=== PATIENT | female | born 1975 | race Caucasian/White ===

== ENCOUNTER 2019-01-19 15:08 | Emergency (ER) | payer MEDICARE, OTHER ==
[~2019-01-19] VITALS: Ht 165.1 cm; Wt 135.2 kg
[2019-01-19 16:18] LABS: BASOPHILS ABSOLUTE AUTO 0.07 K/mm3 (0.00-0.23); BASOPHILS PERCENT AUTO 1 % (0-2); EOSINOPHILS ABSOLUTE AUTO 0.43 K/mm3 (0.00-0.68); EOSINOPHILS PERCENT AUTO 3 % (0-6); Hematocrit 44.1 % (33.0-51.0); Hemoglobin 14.4 g/dL (11.5-16.0); IMMATURE GRAN ABSOLUTE AUTO 0.12 K/mm3 (0.00-0.10); IMMATURE GRAN PERCENT AUTO 1 % (0-1); LYMPHOCYTES ABSOLUTE AUTO 2.76 K/mm3 (0.84-5.20); LYMPHOCYTES PERCENT AUTO 18 % (21-46); MONOCYTES ABSOLUTE AUTO 1.15 K/mm3 (0.16-1.47); MONOCYTES PERCENT AUTO 8 % (4-13); Mean Corpuscular HGB 27.4 pg (26.0-34.0); Mean Corpuscular HGB Conc 32.7 g/dL (31.5-36.5); Mean Corpuscular Volume 84 fL (80-100); Mean Platelet Volume 10.4 fL (9.1-12.4); NEUTROPHILS ABSOLUTE AUTO 10.45 K/mm3 (1.96-9.15); NEUTROPHILS PERCENT AUTO 70 % (41-73); Platelet Count 315 K/mm3 (150-400); RDW Coefficient Variation 14.2 % (11.7-14.2); RDW Standard Deviation 43.3 fL (35.1-46.3); Red Blood Cell Count 5.26 M/mm3 (3.80-5.20); White Blood Cell Count 14.98 K/mm3 (4.00-11.30)
[2019-01-19 16:52] LABS: Alanine Aminotransfer (ALT/SGP 25 U/L (12-78); Albumin, Blood 3.5 g/dL (3.4-5.0); Albumin/Globulin Ratio 0.9 (0.8-1.8); Alk Phos 83 U/L (50-136); Anion Gap 4 mmol/L (6-16); Aspartate Aminotrans (AST/SGOT 19 U/L (12-37); Bilirubin, Total 0.8 mg/dL (0.1-1.0); Blood Urea Nitrogen 18 mg/dL (8-24); Bun/Creatinine Ratio 19.7 (12.0-20.0); CO2, Blood 28 mmol/L (21-32); Calcium, Blood 9.3 mg/dL (8.5-10.1); Chloride, Blood 105 mmol/L (98-108); Creatinine, Blood 0.92 mg/dL (0.40-1.00); Globulin, Blood 4.1 g/dL (2.2-4.0); Glomerular Filtration Rate >60 (60-); Glucose, Blood 119 mg/dL (70-99); Potassium, Blood 4.8 mmol/L (3.5-5.5); Sodium, Blood 137 mmol/L (136-145); Total Protein, Blood 7.6 g/dL (6.4-8.2)
[2019-01-19 17:20] LABS: Source, Urine Clean Catch
[2019-01-19 17:30] LABS: Bilirubin, Urine Neg (Neg); Blood, Urine Neg (Neg); Glucose Qualitative, Urine Neg (Neg); Ketones, Urine Neg (Neg); Leukocyte Esterase, Urine Neg (Neg); Nitrite, Urine Neg (Neg); Protein, Urine Neg (Neg); Urobilinogen, Urine NORM (Normal)
[2019-01-19 17:42] LABS: Appearance, Urine Clear (Clear); Color, Urine Yellow (P-Yellow)
[2019-01-19] MEDS ORDERED: Flomax0.4 MG PO (19:26)
[2019-01-19] MEDS ORDERED: Norco 10-325 T1 EACH PO (19:26)
== END 2019-01-19 20:29 | disposition home or self-care (01) ==
LOC: ER 15:08
PROVIDERS: Physician Assistant
DX: N13.1 Hydronephrosis with ureteral stricture, not elsewhere classified (principal); Z79.899 Other long term (current) drug therapy; I11.0 Hypertensive heart disease with heart failure; I50.9 Heart failure, unspecified; F20.9 Schizophrenia, unspecified; E11.9 Type 2 diabetes mellitus without complications; F17.200 Nicotine dependence, unspecified, uncomplicated
CPT/HCPCS: 74176; 80053; 81003; 82947; 83690; 85025; 96361; 96374; 96375; 99284-25; A9270; J1170; J2270; J7030

== ENCOUNTER 2019-03-21 15:09 | Emergency (ER) | payer MEDICARE, OTHER ==
[~2019-03-21] VITALS: Ht 165.1 cm; Wt 120.0 kg
[~2019-03-21 15:09] MED LIST: Flomax0.4 MG PO; Norco 10-325 T1 EACH PO
[2019-03-21 16:20] LABS: Source, Urine Clean Catch
[2019-03-21 16:24] LABS: Bilirubin, Urine Neg (Neg); Blood, Urine 2+ (Neg); Glucose Qualitative, Urine Neg (Neg); Ketones, Urine Neg (Neg); Leukocyte Esterase, Urine 2+ (Neg); Nitrite, Urine Neg (Neg); Protein, Urine 1+ (Neg); Urobilinogen, Urine NORM (Normal)
[2019-03-21 16:39] LABS: Appearance, Urine Hazy (Clear); Color, Urine Yellow (P-Yellow)
[2019-03-21 16:40] LABS: Bacteria Mod /hpf; Squamous Epithelial Cells Many /hpf (Few)
[2019-03-21 16:44] LABS: BASOPHILS ABSOLUTE AUTO 0.06 K/mm3 (0.00-0.23); BASOPHILS PERCENT AUTO 0 % (0-2); EOSINOPHILS ABSOLUTE AUTO 0.34 K/mm3 (0.00-0.68); EOSINOPHILS PERCENT AUTO 2 % (0-6); Hematocrit 43.3 % (33.0-51.0); Hemoglobin 13.9 g/dL (11.5-16.0); IMMATURE GRAN ABSOLUTE AUTO 0.17 K/mm3 (0.00-0.10); IMMATURE GRAN PERCENT AUTO 1 % (0-1); LYMPHOCYTES ABSOLUTE AUTO 3.35 K/mm3 (0.84-5.20); LYMPHOCYTES PERCENT AUTO 23 % (21-46); MONOCYTES ABSOLUTE AUTO 1.25 K/mm3 (0.16-1.47); MONOCYTES PERCENT AUTO 9 % (4-13); Mean Corpuscular HGB 27.5 pg (26.0-34.0); Mean Corpuscular HGB Conc 32.1 g/dL (31.5-36.5); Mean Corpuscular Volume 86 fL (80-100); Mean Platelet Volume 10.6 fL (9.1-12.4); NEUTROPHILS ABSOLUTE AUTO 9.48 K/mm3 (1.96-9.15); NEUTROPHILS PERCENT AUTO 65 % (41-73); Platelet Count 294 K/mm3 (150-400); RDW Coefficient Variation 14.2 % (11.7-14.2); RDW Standard Deviation 45.1 fL (35.1-46.3); Red Blood Cell Count 5.05 M/mm3 (3.80-5.20); White Blood Cell Count 14.65 K/mm3 (4.00-11.30)
[2019-03-21 17:07] LABS: Albumin, Blood 3.4 g/dL (3.4-5.0); Bilirubin, Total 0.2 mg/dL (0.1-1.0); Bun/Creatinine Ratio 15.8 (12.0-20.0); Calcium, Blood 8.8 mg/dL (8.5-10.1); Creatinine, Blood 1.39 mg/dL (0.40-1.00); Globulin, Blood 3.5 g/dL (2.2-4.0); Potassium, Blood 4.4 mmol/L (3.5-5.5); Total Protein, Blood 6.9 g/dL (6.4-8.2)
[2019-03-21] MEDS ORDERED: METOPROLOL SUCC25 MG PO (18:21)
[2019-03-21] MEDS ORDERED: LISI5 PO (18:22)
[2019-03-21] MEDS ORDERED: GABA300 PO (18:23)
[2019-03-21] MEDS ORDERED: ATOR10 PO (18:23)
[2019-03-21] MEDS ORDERED: Cymbalta20 MG PO (18:23)
[2019-03-21] MEDS ORDERED: METF500 PO (18:25)
[2019-03-21] MEDS ORDERED: ZIPR80 PO (18:26)
[2019-03-21] MEDS ORDERED: INSULANPEN SC (18:26)
[2019-03-21] MEDS ORDERED: CEFD300 PO (20:18)
== END 2019-03-21 21:09 | disposition home or self-care (01) ==
LOC: ER 15:09
PROVIDERS: Physician Assistant
DX: T83.84XA Pain due to genitourinary prosthetic devices, implants and grafts, initial encounter (principal); I13.0 Hypertensive heart and chronic kidney disease with heart failure and stage 1 through stage 4 chronic kidney disease, or unspecified chronic kidney disease; I50.9 Heart failure, unspecified; E11.22 Type 2 diabetes mellitus with diabetic chronic kidney disease; N18.9 Chronic kidney disease, unspecified; I11.0 Hypertensive heart disease with heart failure; F20.9 Schizophrenia, unspecified; Z91.040 Latex allergy status; Z91.09 Other allergy status, other than to drugs and biological substances
CPT/HCPCS: 74176; 80053; 81001; 82947; 85025; 87086; 96361; 96374; 99284-25; A9270; J1170; J7030

== ENCOUNTER 2019-03-29 10:47 | Emergency (ER) | payer MEDICARE, OTHER ==
[~2019-03-29] VITALS: Ht 172.7 cm; Wt 136.1 kg
[~2019-03-29 10:47] MED LIST changes: +ATOR10 PO; +CEFD300 PO; +Cymbalta20 MG PO; +GABA300 PO; +INSULANPEN SC; +LISI5 PO; +METF500 PO; +METOPROLOL SUCC25 MG PO; +ZIPR80 PO
[2019-03-29 12:02] LABS: BASOPHILS ABSOLUTE AUTO 0.05 K/mm3 (0.00-0.23); BASOPHILS PERCENT AUTO 0 % (0-2); EOSINOPHILS PERCENT AUTO 1 % (0-6); Hematocrit 44.9 % (33.0-51.0); Hemoglobin 14.6 g/dL (11.5-16.0); IMMATURE GRAN ABSOLUTE AUTO 0.11 K/mm3 (0.00-0.10); IMMATURE GRAN PERCENT AUTO 1 % (0-1); LYMPHOCYTES ABSOLUTE AUTO 2.91 K/mm3 (0.84-5.20); LYMPHOCYTES PERCENT AUTO 21 % (21-46); MONOCYTES ABSOLUTE AUTO 1.06 K/mm3 (0.16-1.47); MONOCYTES PERCENT AUTO 8 % (4-13); Mean Corpuscular HGB 27.6 pg (26.0-34.0); Mean Corpuscular HGB Conc 32.5 g/dL (31.5-36.5); Mean Corpuscular Volume 85 fL (80-100); Mean Platelet Volume 10.7 fL (9.1-12.4); NEUTROPHILS ABSOLUTE AUTO 9.74 K/mm3 (1.96-9.15); NEUTROPHILS PERCENT AUTO 69 % (41-73); Platelet Count 309 K/mm3 (150-400); RDW Coefficient Variation 14.3 % (11.7-14.2); RDW Standard Deviation 43.5 fL (35.1-46.3); Red Blood Cell Count 5.29 M/mm3 (3.80-5.20); White Blood Cell Count 14.07 K/mm3 (4.00-11.30)
[2019-03-29 12:18] LABS: Alanine Aminotransfer (ALT/SGP 27 U/L (12-78); Albumin, Blood 3.9 g/dL (3.4-5.0); Alk Phos 78 U/L (50-136); Anion Gap 6 mmol/L (6-16); Aspartate Aminotrans (AST/SGOT 12 U/L (12-37); Bilirubin, Total 0.2 mg/dL (0.1-1.0); Blood Urea Nitrogen 14 mg/dL (8-24); CO2, Blood 22 mmol/L (21-32); Calcium, Blood 9.1 mg/dL (8.5-10.1); Chloride, Blood 108 mmol/L (98-108); Creatinine, Blood 0.88 mg/dL (0.40-1.00); Globulin, Blood 3.9 g/dL (2.2-4.0); Glomerular Filtration Rate >60 (60-); Glucose, Blood 134 mg/dL (70-99); Potassium, Blood 4.2 mmol/L (3.5-5.5); Sodium, Blood 136 mmol/L (136-145); Total Protein, Blood 7.8 g/dL (6.4-8.2)
[2019-03-29] MEDS ORDERED: INSULANPEN (12:40)
[2019-03-29 13:14] LABS: Source, Urine Voided
[2019-03-29 13:18] LABS: Bilirubin, Urine Neg (Neg); Blood, Urine Neg (Neg); Glucose Qualitative, Urine Neg (Neg); Ketones, Urine Neg (Neg); Leukocyte Esterase, Urine Neg (Neg); Nitrite, Urine Neg (Neg); Protein, Urine Neg (Neg); Urobilinogen, Urine NORM (Normal)
[2019-03-29 13:23] LABS: Appearance, Urine Clear (Clear); Color, Urine Yellow (P-Yellow)
[2019-03-29] MEDS ORDERED: ACETAMINOPHEN500 MG PO (15:23)
[2019-03-29] MEDS ORDERED: Vistaril50 MG PO (15:23)
[2019-03-29] MEDS ORDERED: Percocet 5-3251 EACH PO (15:23)
== END 2019-03-29 15:50 | disposition home or self-care (01) ==
LOC: ER 10:47
PROVIDERS: Emergency Medicine
DX: R10.9 Unspecified abdominal pain (principal); F20.9 Schizophrenia, unspecified; I13.0 Hypertensive heart and chronic kidney disease with heart failure and stage 1 through stage 4 chronic kidney disease, or unspecified chronic kidney disease; E11.22 Type 2 diabetes mellitus with diabetic chronic kidney disease; N18.9 Chronic kidney disease, unspecified; I50.9 Heart failure, unspecified; Z96.0 Presence of urogenital implants; Z87.440 Personal history of urinary (tract) infections; Z87.891 Personal history of nicotine dependence; Z91.040 Latex allergy status; Z91.048 Other nonmedicinal substance allergy status; Z79.899 Other long term (current) drug therapy; Z79.4 Long term (current) use of insulin
CPT/HCPCS: 36415; 76705; 80053; 81003; 85025; 96374; 96375; 96376; 99284-25; J1170; J2060; J2405

== ENCOUNTER 2019-03-31 00:04 | Emergency (ER) | payer MEDICARE, OTHER ==
[~2019-03-31] VITALS: Ht 165.1 cm; Wt 122.5 kg
[~2019-03-31 00:04] MED LIST changes: +ACETAMINOPHEN500 MG PO; +INSULANPEN; +Percocet 5-3251 EACH PO; +Vistaril50 MG PO
[2019-03-31 00:40] LABS: BASOPHILS ABSOLUTE AUTO 0.05 K/mm3 (0.00-0.23); BASOPHILS PERCENT AUTO 0 % (0-2); EOSINOPHILS PERCENT AUTO 2 % (0-6); Hematocrit 47.3 % (33.0-51.0); Hemoglobin 15.3 g/dL (11.5-16.0); IMMATURE GRAN ABSOLUTE AUTO 0.11 K/mm3 (0.00-0.10); IMMATURE GRAN PERCENT AUTO 1 % (0-1); LYMPHOCYTES ABSOLUTE AUTO 3.47 K/mm3 (0.84-5.20); LYMPHOCYTES PERCENT AUTO 20 % (21-46); MONOCYTES ABSOLUTE AUTO 1.51 K/mm3 (0.16-1.47); MONOCYTES PERCENT AUTO 9 % (4-13); Mean Corpuscular HGB 27.6 pg (26.0-34.0); Mean Corpuscular HGB Conc 32.3 g/dL (31.5-36.5); Mean Corpuscular Volume 85 fL (80-100); Mean Platelet Volume 10.4 fL (9.1-12.4); NEUTROPHILS ABSOLUTE AUTO 11.87 K/mm3 (1.96-9.15); NEUTROPHILS PERCENT AUTO 69 % (41-73); Platelet Count 322 K/mm3 (150-400); RDW Coefficient Variation 13.9 % (11.7-14.2); RDW Standard Deviation 43.5 fL (35.1-46.3); Red Blood Cell Count 5.55 M/mm3 (3.80-5.20); White Blood Cell Count 17.31 K/mm3 (4.00-11.30)
[2019-03-31 01:01] LABS: Alanine Aminotransfer (ALT/SGP 28 U/L (12-78); Albumin/Globulin Ratio 0.9 (0.8-1.8); Alk Phos 85 U/L (50-136); Anion Gap 7 mmol/L (6-16); Aspartate Aminotrans (AST/SGOT 18 U/L (12-37); Bilirubin, Total 0.4 mg/dL (0.1-1.0); Blood Urea Nitrogen 13 mg/dL (8-24); CO2, Blood 27 mmol/L (21-32); Chloride, Blood 104 mmol/L (98-108); Globulin, Blood 4.3 g/dL (2.2-4.0); Glomerular Filtration Rate >60 (60-); Glucose, Blood 139 mg/dL (70-99); Potassium, Blood 3.6 mmol/L (3.5-5.5); Sodium, Blood 138 mmol/L (136-145); Total Protein, Blood 8.3 g/dL (6.4-8.2)
[2019-03-31 01:41] LABS: Source, Urine Clean Catch
[2019-03-31 01:43] LABS: Bilirubin, Urine Neg (Neg); Blood, Urine Neg (Neg); Glucose Qualitative, Urine Neg (Neg); Ketones, Urine 1+ (Neg); Leukocyte Esterase, Urine Neg (Neg); Nitrite, Urine Neg (Neg); Protein, Urine 1+ (Neg); Urobilinogen, Urine NORM (Normal)
[2019-03-31 01:45] LABS: Appearance, Urine Clear (Clear); Color, Urine Yellow (P-Yellow)
[2019-03-31] MEDS ORDERED: HALO5 PO (03:06)
[2019-03-31] MEDS ORDERED: Dicyclomine HCl20 MG PO (03:22)
== END 2019-03-31 03:42 | disposition home or self-care (01) ==
LOC: ER 00:04
PROVIDERS: Emergency Medicine
DX: R10.84 Generalized abdominal pain (principal); Z91.040 Latex allergy status; Z91.048 Other nonmedicinal substance allergy status; Z79.899 Other long term (current) drug therapy; Z79.4 Long term (current) use of insulin; F20.9 Schizophrenia, unspecified; I13.0 Hypertensive heart and chronic kidney disease with heart failure and stage 1 through stage 4 chronic kidney disease, or unspecified chronic kidney disease; I50.9 Heart failure, unspecified; E11.22 Type 2 diabetes mellitus with diabetic chronic kidney disease; N18.9 Chronic kidney disease, unspecified; Z87.891 Personal history of nicotine dependence
CPT/HCPCS: 36415; 74177; 80053; 81025; 83690; 85025; 96361; 96372-59; 96374-59; 99284-25; J0500; J1630; J1885; J7030; Q9967

== ENCOUNTER 2019-06-15 10:52 | Emergency (ER) | payer MEDICARE, OTHER ==
[~2019-06-15] VITALS: Ht 165.1 cm; Wt 131.5 kg
[~2019-06-15 10:52] MED LIST changes: +Dicyclomine HCl20 MG PO; +HALO5 PO
[2019-06-15] MEDS ORDERED: HYDR1TAB94 PO (13:04)
[2019-06-15] MEDS ORDERED: NAPR550 PO (13:04)
== END 2019-06-15 13:10 | disposition home or self-care (01) ==
LOC: ER 10:52
DX: M79.661 Pain in right lower leg (principal); M79.662 Pain in left lower leg; I13.0 Hypertensive heart and chronic kidney disease with heart failure and stage 1 through stage 4 chronic kidney disease, or unspecified chronic kidney disease; E11.22 Type 2 diabetes mellitus with diabetic chronic kidney disease; N18.9 Chronic kidney disease, unspecified; I50.9 Heart failure, unspecified; F20.9 Schizophrenia, unspecified; Z91.040 Latex allergy status; Z91.048 Other nonmedicinal substance allergy status; Z79.899 Other long term (current) drug therapy; Z79.4 Long term (current) use of insulin; Z87.891 Personal history of nicotine dependence
CPT/HCPCS: 93970; 96372; 99283-25; J1885

== ENCOUNTER 2019-06-17 09:34 | Emergency (ER) | payer MEDICARE, OTHER ==
[~2019-06-17] VITALS: Ht 165.1 cm; Wt 131.5 kg
[~2019-06-17 09:34] MED LIST changes: +HYDR1TAB94 PO; +NAPR550 PO
[2019-06-17] MEDS ORDERED: ATORVASTATIN CA20 MG PO (10:03)
[2019-06-17 11:05] LABS: Calcium, Ionized (POC) 1.14 mmol/L (1.10-1.46); Chloride (POC) 107 mmol/L (98-108); Creatinine (POC) 0.9 mg/dL (0.6-1.0); Glucose (ISTAT POC) 71 mg/dL (70-99); Hemoglobin (POC) 15.3 g/dL (12.0-16.0); Potassium (POC) 4.3 mmol/L (3.5-5.5); Sodium (POC) 141 mmol/L (135-148); Total CO2 (POC) 25 mmol/L (21-32)
[2019-06-17] MEDS ORDERED: COMPRESSION TH1 EACH MC (11:15)
== END 2019-06-17 11:33 | disposition home or self-care (01) ==
LOC: ER 09:34
PROVIDERS: Emergency Medicine
DX: I83.93 Asymptomatic varicose veins of bilateral lower extremities (principal); F20.9 Schizophrenia, unspecified; G89.4 Chronic pain syndrome; I13.0 Hypertensive heart and chronic kidney disease with heart failure and stage 1 through stage 4 chronic kidney disease, or unspecified chronic kidney disease; E11.22 Type 2 diabetes mellitus with diabetic chronic kidney disease; I50.9 Heart failure, unspecified; N18.9 Chronic kidney disease, unspecified; F17.210 Nicotine dependence, cigarettes, uncomplicated; Z91.040 Latex allergy status; Z91.048 Other nonmedicinal substance allergy status; Z79.899 Other long term (current) drug therapy; Z79.4 Long term (current) use of insulin
CPT/HCPCS: 36415; 80047; 85014; 99283

== ENCOUNTER 2019-10-03 09:57 | Observation (INO) | payer MEDICARE, OTHER ==
[~2019-10-03] VITALS: Ht 165.1 cm; Wt 123.5 kg
[~2019-10-03 09:57] MED LIST changes: +ATORVASTATIN CA20 MG PO; +COMPRESSION TH1 EACH MC; -HALO5 PO; +Haloperidol10 MG PO; -METF500 PO; +METO50 PO; -METOPROLOL SUCC25 MG PO; +Metformin HCl1000 MG PO
[2019-10-03 12:41] LABS: BASOPHILS PERCENT AUTO 1 % (0-2); EOSINOPHILS ABSOLUTE AUTO 0.12 K/mm3 (0.00-0.68); EOSINOPHILS PERCENT AUTO 1 % (0-6); Hematocrit 53.2 % (33.0-51.0); IMMATURE GRAN ABSOLUTE AUTO 0.09 K/mm3 (0.00-0.10); IMMATURE GRAN PERCENT AUTO 1 % (0-1); LYMPHOCYTES ABSOLUTE AUTO 3.03 K/mm3 (0.84-5.20); LYMPHOCYTES PERCENT AUTO 17 % (21-46); MONOCYTES ABSOLUTE AUTO 1.39 K/mm3 (0.16-1.47); MONOCYTES PERCENT AUTO 8 % (4-13); Mean Corpuscular HGB 25.1 pg (26.0-34.0); Mean Corpuscular Volume 79 fL (80-100); Mean Platelet Volume 10.6 fL (9.1-12.4); NEUTROPHILS PERCENT AUTO 73 % (41-73); Platelet Count 322 K/mm3 (150-400); RDW Coefficient Variation 16.6 % (11.7-14.2); RDW Standard Deviation 42.1 fL (35.1-46.3); Red Blood Cell Count 6.77 M/mm3 (3.80-5.20); White Blood Cell Count 17.43 K/mm3 (4.00-11.30)
[2019-10-03] MEDS ORDERED: DULOXETINE HCL40 M1 PO (12:58)
[2019-10-03 12:59] LABS: Alanine Aminotransfer (ALT/SGP 21 U/L (12-78); Albumin, Blood 3.8 g/dL (3.4-5.0); Alk Phos 110 U/L (50-136); Anion Gap 9 mmol/L (6-16); Aspartate Aminotrans (AST/SGOT 9 U/L (12-37); Bilirubin, Total 0.4 mg/dL (0.1-1.0); Blood Urea Nitrogen 8 mg/dL (8-24); Bun/Creatinine Ratio 9.7 (12.0-20.0); CO2, Blood 25 mmol/L (21-32); Calcium, Blood 10.1 mg/dL (8.5-10.1); Chloride, Blood 98 mmol/L (98-108); Creatinine, Blood 0.83 mg/dL (0.40-1.00); Glomerular Filtration Rate >60 (60-); Glucose, Blood 284 mg/dL (70-99); Potassium, Blood 4.3 mmol/L (3.5-5.5); Sodium, Blood 132 mmol/L (136-145); Total Protein, Blood 7.8 g/dL (6.4-8.2)
[2019-10-03 13:07] LABS: Thyroid Stimulating Hormone 0.853 uIU/mL (0.360-4.800)
[2019-10-03 13:08] LABS: U Amphetamine Screen Not Detected; U Barbituate Screen Not Detected; U Benzodiazapine Screen Not Detected; U Buprenorphine Screen Not Detected; U Cannabinoids Screen Not Detected; U Cocaine Screen Not Detected; U Methadone Screen Not Detected; U Methamphetamine Screen Not Detected; U Opiates Screen DETECTED; U Oxycodone Screen Not Detected; U Phencyclidine Screen Not Detected; U Propoxyphene Screen Not Detected
[2019-10-03 21:08] LABS: Source, Urine Clean Catch
[2019-10-03 21:11] LABS: Bilirubin, Urine Neg (Neg); Blood, Urine 1+ (Neg); Glucose Qualitative, Urine 3+ (Neg); Ketones, Urine 1+ (Neg); Leukocyte Esterase, Urine 2+ (Neg); Nitrite, Urine Neg (Neg); Protein, Urine 2+ (Neg); Urobilinogen, Urine NORM (Normal); pH, Urine 6.5 (5.0-8.0)
[2019-10-03 21:23] LABS: Appearance, Urine Hazy (Clear); Bacteria Many /hpf; Color, Urine Yellow (P-Yellow); Red Blood Cells, Urine 0-2 /hpf (0-2); Squamous Epithelial Cells Many /hpf (Few)
[2019-10-04 08:07] LABS: BASOPHILS ABSOLUTE AUTO 0.08 K/mm3 (0.00-0.23); BASOPHILS PERCENT AUTO 1 % (0-2); EOSINOPHILS ABSOLUTE AUTO 0.18 K/mm3 (0.00-0.68); EOSINOPHILS PERCENT AUTO 1 % (0-6); Hematocrit 53.3 % (33.0-51.0); IMMATURE GRAN ABSOLUTE AUTO 0.14 K/mm3 (0.00-0.10); IMMATURE GRAN PERCENT AUTO 1 % (0-1); LYMPHOCYTES ABSOLUTE AUTO 3.46 K/mm3 (0.84-5.20); LYMPHOCYTES PERCENT AUTO 21 % (21-46); MONOCYTES ABSOLUTE AUTO 1.69 K/mm3 (0.16-1.47); MONOCYTES PERCENT AUTO 10 % (4-13); Mean Corpuscular HGB 25.4 pg (26.0-34.0); Mean Corpuscular HGB Conc 31.9 g/dL (31.5-36.5); Mean Corpuscular Volume 80 fL (80-100); Mean Platelet Volume 10.6 fL (9.1-12.4); NEUTROPHILS ABSOLUTE AUTO 11.14 K/mm3 (1.96-9.15); NEUTROPHILS PERCENT AUTO 67 % (41-73); Platelet Count 345 K/mm3 (150-400); RDW Coefficient Variation 17.2 % (11.7-14.2); RDW Standard Deviation 43.9 fL (35.1-46.3); Red Blood Cell Count 6.68 M/mm3 (3.80-5.20); White Blood Cell Count 16.69 K/mm3 (4.00-11.30)
[2019-10-04 08:38] LABS: Source, Urine Clean Catch
[2019-10-04 08:41] LABS: Bilirubin, Urine Neg (Neg); Blood, Urine Neg (Neg); Glucose Qualitative, Urine Neg (Neg); Ketones, Urine Neg (Neg); Leukocyte Esterase, Urine 1+ (Neg); Nitrite, Urine Neg (Neg); Protein, Urine 2+ (Neg); Specific Gravity, Urine 1.015 (1.003-1.022); Urobilinogen, Urine NORM (Normal)
[2019-10-04 08:53] LABS: Appearance, Urine Hazy (Clear); Color, Urine Yellow (P-Yellow)
[2019-10-04 08:54] LABS: Red Blood Cells, Urine 0-2 /hpf (0-2); Squamous Epithelial Cells Many /hpf (Few)
[2019-10-04 08:55] LABS: Bacteria Many /hpf
[2019-10-04 10:37] LABS: Albumin, Blood 3.6 g/dL (3.4-5.0); Albumin/Globulin Ratio 0.9 (0.8-1.8); Bilirubin, Total 0.3 mg/dL (0.1-1.0); Bun/Creatinine Ratio 15.3 (12.0-20.0); Calcium, Blood 9.8 mg/dL (8.5-10.1); Creatinine, Blood 1.11 mg/dL (0.40-1.00); Globulin, Blood 3.8 g/dL (2.2-4.0); Potassium, Blood 4.4 mmol/L (3.5-5.5); Total Protein, Blood 7.4 g/dL (6.4-8.2)
== END 2019-10-04 13:19 | disposition home or self-care (01) ==
LOC: ER 09:57 → EOR 09:58
PROVIDERS: Emergency Medicine; ADMIT Emergency Medicine
DX: F32.9 Major depressive disorder, single episode, unspecified (principal); I11.0 Hypertensive heart disease with heart failure; I50.9 Heart failure, unspecified; E11.9 Type 2 diabetes mellitus without complications; F20.9 Schizophrenia, unspecified; F17.210 Nicotine dependence, cigarettes, uncomplicated; Z88.8 Allergy status to other drugs, medicaments and biological substances; Z91.040 Latex allergy status; Z79.4 Long term (current) use of insulin; Z79.899 Other long term (current) drug therapy
CPT/HCPCS: 36415; 71046; 80053; 81001; 82947; 83880; 84443; 84484; 85025; 87086; 99285-25; A9270; G0378; Q0177

== ENCOUNTER 2020-01-20 16:45 | Emergency (ER) | payer MEDICARE, OTHER ==
[~2020-01-20] VITALS: Ht 165.1 cm; Wt 127.0 kg
[~2020-01-20 16:45] MED LIST changes: +DULOXETINE HCL40 M1 PO
[2020-01-20 17:08] LABS: BASOPHILS ABSOLUTE AUTO 0.04 K/mm3 (0.00-0.23); BASOPHILS PERCENT AUTO 0 % (0-2); EOSINOPHILS ABSOLUTE AUTO 0.45 K/mm3 (0.00-0.68); EOSINOPHILS PERCENT AUTO 3 % (0-6); Hematocrit 44.5 % (33.0-51.0); Hemoglobin 14.5 g/dL (11.5-16.0); IMMATURE GRAN ABSOLUTE AUTO 0.11 K/mm3 (0.00-0.10); IMMATURE GRAN PERCENT AUTO 1 % (0-1); LYMPHOCYTES PERCENT AUTO 19 % (21-46); MONOCYTES ABSOLUTE AUTO 1.45 K/mm3 (0.16-1.47); MONOCYTES PERCENT AUTO 10 % (4-13); Mean Corpuscular HGB Conc 32.6 g/dL (31.5-36.5); Mean Corpuscular Volume 83 fL (80-100); Mean Platelet Volume 10.2 fL (9.1-12.4); NEUTROPHILS ABSOLUTE AUTO 10.06 K/mm3 (1.96-9.15); NEUTROPHILS PERCENT AUTO 68 % (41-73); Platelet Count 256 K/mm3 (150-400); RDW Coefficient Variation 16.2 % (11.7-14.2); RDW Standard Deviation 48.8 fL (35.1-46.3); Red Blood Cell Count 5.37 M/mm3 (3.80-5.20); White Blood Cell Count 14.91 K/mm3 (4.00-11.30)
[2020-01-20 17:30] LABS: Alanine Aminotransfer (ALT/SGP 15 U/L (12-78); Albumin, Blood 3.6 g/dL (3.4-5.0); Alk Phos 89 U/L (50-136); Anion Gap 9 mmol/L (6-16); Aspartate Aminotrans (AST/SGOT 6 U/L (12-37); Bilirubin, Total 0.4 mg/dL (0.1-1.0); Blood Urea Nitrogen 13 mg/dL (8-24); CO2, Blood 24 mmol/L (21-32); Calcium, Blood 8.9 mg/dL (8.5-10.1); Chloride, Blood 102 mmol/L (98-108); Creatinine, Blood 0.86 mg/dL (0.40-1.00); Globulin, Blood 3.7 g/dL (2.2-4.0); Glomerular Filtration Rate >60 (60-); Glucose, Blood 132 mg/dL (70-99); Potassium, Blood 4.1 mmol/L (3.5-5.5); Sodium, Blood 135 mmol/L (136-145); Total Protein, Blood 7.3 g/dL (6.4-8.2); Troponin I <0.015 ng/mL (0.000-0.040)
== END 2020-01-20 18:48 | disposition left against medical advice (07) ==
LOC: ER 16:45
PROVIDERS: Physician Assistant
DX: Z53.21 Procedure and treatment not carried out due to patient leaving prior to being seen by health care provider (principal)
CPT/HCPCS: 71046; 80053; 83880; 84484; 85025; 93005; 93010; 99285-25

== ENCOUNTER 2020-03-15 17:56 | Emergency (ER) | payer MEDICARE, OTHER ==
[~2020-03-15] VITALS: Ht 165.1 cm; Wt 122.5 kg
[2020-03-15 18:35] LABS: BASOPHILS ABSOLUTE AUTO 0.04 K/mm3 (0.00-0.23); BASOPHILS PERCENT AUTO 0 % (0-2); EOSINOPHILS PERCENT AUTO 2 % (0-6); Hematocrit 46.7 % (33.0-51.0); Hemoglobin 15.2 g/dL (11.5-16.0); IMMATURE GRAN ABSOLUTE AUTO 0.09 K/mm3 (0.00-0.10); IMMATURE GRAN PERCENT AUTO 1 % (0-1); LYMPHOCYTES ABSOLUTE AUTO 3.18 K/mm3 (0.84-5.20); LYMPHOCYTES PERCENT AUTO 22 % (21-46); MONOCYTES PERCENT AUTO 9 % (4-13); Mean Corpuscular HGB 27.8 pg (26.0-34.0); Mean Corpuscular HGB Conc 32.5 g/dL (31.5-36.5); Mean Corpuscular Volume 86 fL (80-100); Mean Platelet Volume 9.8 fL (9.1-12.4); NEUTROPHILS ABSOLUTE AUTO 9.36 K/mm3 (1.96-9.15); NEUTROPHILS PERCENT AUTO 66 % (41-73); Platelet Count 286 K/mm3 (150-400); RDW Coefficient Variation 13.9 % (11.7-14.2); RDW Standard Deviation 43.5 fL (35.1-46.3); Red Blood Cell Count 5.46 M/mm3 (3.80-5.20); White Blood Cell Count 14.17 K/mm3 (4.00-11.30)
[2020-03-15 18:37] LABS: Source, Urine Clean Catch
[2020-03-15 18:41] LABS: Bilirubin, Urine Neg (Neg); Blood, Urine Neg (Neg); Glucose Qualitative, Urine Neg (Neg); Ketones, Urine Neg (Neg); Leukocyte Esterase, Urine Neg (Neg); Nitrite, Urine Neg (Neg); Protein, Urine Neg (Neg); Specific Gravity, Urine 1.005 (1.003-1.022); Urobilinogen, Urine NORM (Normal)
[2020-03-15 18:42] LABS: Appearance, Urine Clear (Clear); Color, Urine Yellow (P-Yellow)
[2020-03-15 18:56] LABS: Alanine Aminotransfer (ALT/SGP 17 U/L (12-78); Albumin, Blood 3.6 g/dL (3.4-5.0); Albumin/Globulin Ratio 0.9 (0.8-1.8); Alk Phos 81 U/L (50-136); Anion Gap 5 mmol/L (6-16); Aspartate Aminotrans (AST/SGOT 9 U/L (12-37); Bilirubin, Total 0.2 mg/dL (0.1-1.0); Blood Urea Nitrogen 14 mg/dL (8-24); Bun/Creatinine Ratio 15.9 (12.0-20.0); CO2, Blood 26 mmol/L (21-32); Chloride, Blood 108 mmol/L (98-108); Creatinine, Blood 0.88 mg/dL (0.40-1.00); Globulin, Blood 3.9 g/dL (2.2-4.0); Glomerular Filtration Rate >60 (60-); Glucose, Blood 121 mg/dL (70-99); Potassium, Blood 4.5 mmol/L (3.5-5.5); Sodium, Blood 139 mmol/L (136-145); Total Protein, Blood 7.5 g/dL (6.4-8.2)
[2020-03-15] MEDS ORDERED: Prinivil10 MG PO (19:18)
[2020-03-15] MEDS ORDERED: HALO5 PO (19:18)
[2020-03-15] MEDS ORDERED: ZIPR80 PO (19:19)
[2020-03-15] MEDS ORDERED: PANTOPRAZOLE SO40 M2 PO (19:20)
[2020-03-15] MEDS ORDERED: CODACE30 PO (19:20)
[2020-03-15] MEDS ORDERED: TAMSULOSIN HCL0.4 M1 PO (19:20)
[2020-03-15] MEDS ORDERED: BENZ2 PO (19:21)
[2020-03-15] MEDS ORDERED: Ventolin/Prove6.7 GM (19:21)
[2020-03-15] MEDS ORDERED: CYCL10 PO (20:08)
[2020-03-15] MEDS ORDERED: NAPR550 PO (20:08)
== END 2020-03-15 20:44 | disposition home or self-care (01) ==
LOC: ER 17:56
PROVIDERS: Physician Assistant
DX: M62.830 Muscle spasm of back (principal); I11.0 Hypertensive heart disease with heart failure; I50.9 Heart failure, unspecified; E11.9 Type 2 diabetes mellitus without complications; F17.210 Nicotine dependence, cigarettes, uncomplicated
CPT/HCPCS: 36415; 74176; 80053; 81003; 83690; 85025; 99284-25

== ENCOUNTER 2020-03-26 16:44 | Emergency (ER) | payer MEDICARE, OTHER ==
[~2020-03-26] VITALS: Ht 165.1 cm; Wt 126.5 kg
[~2020-03-26 16:44] MED LIST changes: +BENZ2 PO; +CODACE30 PO; +CYCL10 PO; +HALO5 PO; +PANTOPRAZOLE SO40 M2 PO; +Prinivil10 MG PO; +TAMSULOSIN HCL0.4 M1 PO; +Ventolin/Prove6.7 GM
== END 2020-03-26 18:51 | disposition left against medical advice (07) ==
LOC: ER 16:44
DX: N93.9 Abnormal uterine and vaginal bleeding, unspecified (principal); Z53.20 Procedure and treatment not carried out because of patient's decision for unspecified reasons; W19.XXXA Unspecified fall, initial encounter
CPT/HCPCS: 72170; 99283-25

== ENCOUNTER → 2020-03-31 | Outpatient (CLI) | payer MEDICARE, OTHER ==
[2020-03-31 17:48] LABS: BASOPHILS ABSOLUTE AUTO 0.04 K/mm3 (0.00-0.23); BASOPHILS PERCENT AUTO 0 % (0-2); EOSINOPHILS ABSOLUTE AUTO 0.23 K/mm3 (0.00-0.68); EOSINOPHILS PERCENT AUTO 2 % (0-6); Hematocrit 41.5 % (33.0-51.0); Hemoglobin 13.6 g/dL (11.5-16.0); IMMATURE GRAN ABSOLUTE AUTO 0.07 K/mm3 (0.00-0.10); IMMATURE GRAN PERCENT AUTO 1 % (0-1); LYMPHOCYTES PERCENT AUTO 25 % (21-46); MONOCYTES ABSOLUTE AUTO 0.86 K/mm3 (0.16-1.47); MONOCYTES PERCENT AUTO 8 % (4-13); Mean Corpuscular HGB 28.2 pg (26.0-34.0); Mean Corpuscular HGB Conc 32.8 g/dL (31.5-36.5); Mean Corpuscular Volume 86 fL (80-100); Mean Platelet Volume 9.9 fL (9.1-12.4); NEUTROPHILS ABSOLUTE AUTO 6.52 K/mm3 (1.96-9.15); NEUTROPHILS PERCENT AUTO 64 % (41-73); Platelet Count 240 K/mm3 (150-400); RDW Coefficient Variation 13.5 % (11.7-14.2); RDW Standard Deviation 42.4 fL (35.1-46.3); Red Blood Cell Count 4.82 M/mm3 (3.80-5.20); White Blood Cell Count 10.22 K/mm3 (4.00-11.30)
== END | disposition home or self-care (01) ==
LOC: LAB EV 17:45 → LAB SHORT 17:45
PROVIDERS: Physician Assistant
DX: R10.32 Left lower quadrant pain (principal)
CPT/HCPCS: 85025

== ENCOUNTER 2020-05-28 10:09 | Inpatient (IN) | payer MEDICARE, OTHER ==
[~2020-05-28] VITALS: Ht 165.1 cm; Wt 142.9 kg
[~2020-05-28 10:09] MED LIST changes: +BASAGLAR K100 UNIT/1 SC; -CODACE30 PO; +GLUCOPHAGE1000 M1 PO; -INSULANPEN; +LISI20 PO; +METO25 PO; -METO50 PO; -Metformin HCl1000 MG PO; -Prinivil10 MG PO; -Ventolin/Prove6.7 GM; +Ventolin/Prove6.7 GM INH
[2020-05-28 11:06] LABS: BASOPHILS ABSOLUTE AUTO 0.06 K/mm3 (0.00-0.23); BASOPHILS PERCENT AUTO 0 % (0-2); EOSINOPHILS ABSOLUTE AUTO 0.52 K/mm3 (0.00-0.68); EOSINOPHILS PERCENT AUTO 4 % (0-6); Hematocrit 42.9 % (33.0-51.0); Hemoglobin 13.7 g/dL (11.5-16.0); IMMATURE GRAN ABSOLUTE AUTO 0.21 K/mm3 (0.00-0.10); IMMATURE GRAN PERCENT AUTO 2 % (0-1); LYMPHOCYTES ABSOLUTE AUTO 2.89 K/mm3 (0.84-5.20); LYMPHOCYTES PERCENT AUTO 21 % (21-46); MONOCYTES ABSOLUTE AUTO 1.11 K/mm3 (0.16-1.47); MONOCYTES PERCENT AUTO 8 % (4-13); Mean Corpuscular HGB 28.1 pg (26.0-34.0); Mean Corpuscular HGB Conc 31.9 g/dL (31.5-36.5); Mean Corpuscular Volume 88 fL (80-100); Mean Platelet Volume 9.9 fL (9.1-12.4); NEUTROPHILS ABSOLUTE AUTO 8.76 K/mm3 (1.96-9.15); NEUTROPHILS PERCENT AUTO 65 % (41-73); Platelet Count 317 K/mm3 (150-400); RDW Coefficient Variation 12.8 % (11.7-14.2); RDW Standard Deviation 40.8 fL (35.1-46.3); Red Blood Cell Count 4.88 M/mm3 (3.80-5.20); White Blood Cell Count 13.55 K/mm3 (4.00-11.30)
[2020-05-28 11:28] LABS: Albumin, Blood 3.2 g/dL (3.4-5.0); Albumin/Globulin Ratio 0.8 (0.8-1.8); Bilirubin, Total 0.4 mg/dL (0.1-1.0); Bun/Creatinine Ratio 16.4 (12.0-20.0); Calcium, Blood 8.7 mg/dL (8.5-10.1); Creatinine, Blood 1.16 mg/dL (0.40-1.00); Potassium, Blood 4.2 mmol/L (3.5-5.5); Total Protein, Blood 7.2 g/dL (6.4-8.2)
[2020-05-28 12:06] LABS: Source, Urine Voided
[2020-05-28 12:16] LABS: Appearance, Urine Clear (Clear); Bilirubin, Urine Neg (Neg); Blood, Urine Neg (Neg); Color, Urine Yellow (P-Yellow); Glucose Qualitative, Urine Neg (Neg); Ketones, Urine Neg (Neg); Leukocyte Esterase, Urine Neg (Neg); Nitrite, Urine Neg (Neg); Protein, Urine Neg (Neg); Specific Gravity, Urine 1.005 (1.003-1.022); Urobilinogen, Urine NORM (Normal)
[2020-05-28] MEDS ORDERED: CEPH500 PO (13:45)
[2020-05-28] MEDS ORDERED: GABA300 PO (13:45)
[2020-05-28] MEDS ORDERED: OXYC5 PO (13:46)
[2020-05-28] MEDS ORDERED: CODACE30 PO (15:37)
[2020-05-29 04:10] LABS: BASOPHILS ABSOLUTE AUTO 0.05 K/mm3 (0.00-0.23); BASOPHILS PERCENT AUTO 1 % (0-2); EOSINOPHILS ABSOLUTE AUTO 0.43 K/mm3 (0.00-0.68); EOSINOPHILS PERCENT AUTO 4 % (0-6); Hematocrit 38.7 % (33.0-51.0); Hemoglobin 12.5 g/dL (11.5-16.0); IMMATURE GRAN ABSOLUTE AUTO 0.12 K/mm3 (0.00-0.10); IMMATURE GRAN PERCENT AUTO 1 % (0-1); LYMPHOCYTES ABSOLUTE AUTO 2.54 K/mm3 (0.84-5.20); LYMPHOCYTES PERCENT AUTO 25 % (21-46); MONOCYTES ABSOLUTE AUTO 1.05 K/mm3 (0.16-1.47); MONOCYTES PERCENT AUTO 10 % (4-13); Mean Corpuscular HGB 28.4 pg (26.0-34.0); Mean Corpuscular HGB Conc 32.3 g/dL (31.5-36.5); Mean Corpuscular Volume 88 fL (80-100); NEUTROPHILS ABSOLUTE AUTO 6.04 K/mm3 (1.96-9.15); NEUTROPHILS PERCENT AUTO 59 % (41-73); Platelet Count 288 K/mm3 (150-400); RDW Coefficient Variation 13.1 % (11.7-14.2); RDW Standard Deviation 41.8 fL (35.1-46.3); White Blood Cell Count 10.23 K/mm3 (4.00-11.30)
[2020-05-29 04:28] LABS: Albumin, Blood 2.9 g/dL (3.4-5.0); Albumin/Globulin Ratio 0.9 (0.8-1.8); Bilirubin, Total 0.3 mg/dL (0.1-1.0); Bun/Creatinine Ratio 14.5 (12.0-20.0); Calcium, Blood 8.6 mg/dL (8.5-10.1); Creatinine, Blood 1.24 mg/dL (0.40-1.00); Globulin, Blood 3.4 g/dL (2.2-4.0); Potassium, Blood 4.4 mmol/L (3.5-5.5); Total Protein, Blood 6.3 g/dL (6.4-8.2)
--- NOTE | 2020-05-29 07:45 | NUR ---
SHIFT SUMMARY PT NEW ADMIT YESTARDAY EVENING. AAOX4. DISCOMFORT CONTROLLED WITH 50mcg FENTANYL X3 THIS SHIFT + OXYCODONE Q4-5H + TYLENOL#3 X2 THIS SHIFT. NO NAUSEA/EMESIS. WOUND TO LOWER RIGHT ABD KEO WITH SCANT CLEAR DRAINAGE OUT. PT WITH GOOD PO INTAKE T/O NIGHT, SBA UP TO RESTROOM. IV ABX PER ORDERS. PT AWAITING IMAGING THIS AM. NO ACUTE CHANGES OVER NIGHT. REPORT TO DAY SHIFT RN. PT CURRENTLY RESTING IN BED WITH CALL LIGHT IN REACH.
[2020-05-29] MEDS ORDERED: CODACE30 PO (13:45)
[2020-05-29] MEDS ORDERED: AMOCLA875 PO (13:46)
[2020-05-29] MEDS ORDERED: ONDA4ODT MM (13:46)
--- NOTE | 2020-05-29 15:15 | NUR ---
DISCHARGE SUMMARY PT A&OX4, VSS, LEFT FLOOR VIA WC WITH BATTER MIXER, WITH ALL PERSONAL POSSESSIONS, INCLUDING DC PACKET AND 1 TYLENOL 3 SCRIPT, TO GO HOME WITH . ALL PHARMACIES CLOSED-FAXED SCRIPTS TO PT SEBAS SANTANA. DC INSTRUCTIONS PROVIDED. PT REP UNDERSTANDING DC INSTRUCTIONS INCLUDING FU WITH PCP AND [facility]. IV DC'D.
== END 2020-05-29 15:08 | disposition home or self-care (01) | DRG 863 ==
LOC: ER 10:09 → SURS 16:07
PROVIDERS: Emergency Medicine; ADMIT Family Medicine
PROC: 0J983ZZ Drainage of Abdomen Subcutaneous Tissue and Fascia, Percutaneous Approach (ICD-10-PCS; principal; 2020-05-29)
DX: T81.42XA Infection following a procedure, deep incisional surgical site, initial encounter (principal); Z68.43 Body mass index [BMI] 50.0-59.9, adult; N17.9 Acute kidney failure, unspecified; N18.30 Chronic kidney disease, stage 3 unspecified; Z90.5 Acquired absence of kidney; E11.22 Type 2 diabetes mellitus with diabetic chronic kidney disease; F20.9 Schizophrenia, unspecified; I12.9 Hypertensive chronic kidney disease with stage 1 through stage 4 chronic kidney disease, or unspecified chronic kidney disease; F17.210 Nicotine dependence, cigarettes, uncomplicated; Z79.4 Long term (current) use of insulin; E66.01 Morbid (severe) obesity due to excess calories; E78.5 Hyperlipidemia, unspecified
CPT/HCPCS: 10030; 36415; 74177; 76942; 80053; 81003; 82947; 83605; 83690; 85025; 87070; 87075; 87205; 94760; 96361; 96374-59; 96375; 96376; 99285-25; A9270; A9270-GY; J0295; J2270; J2405; J3010; J7030; Q9967

== ENCOUNTER 2020-06-04 17:24 | Emergency (ER) | payer MEDICARE, OTHER ==
[~2020-06-04] VITALS: Ht 165.1 cm; Wt 117.9 kg
[~2020-06-04 17:24] MED LIST changes: +AMOCLA875 PO; +CEPH500 PO; +CODACE30 PO; +ONDA4ODT MM; +OXYC5 PO
[2020-06-04 17:47] LABS: Source, Urine Clean Catch
[2020-06-04 17:54] LABS: Appearance, Urine Clear (Clear); Bilirubin, Urine Neg (Neg); Blood, Urine Neg (Neg); Color, Urine Yellow (P-Yellow); Glucose Qualitative, Urine Neg (Neg); Ketones, Urine Neg (Neg); Leukocyte Esterase, Urine Neg (Neg); Nitrite, Urine Neg (Neg); Protein, Urine Neg (Neg); Urobilinogen, Urine NORM (Normal)
[2020-06-04 17:56] LABS: BASOPHILS ABSOLUTE AUTO 0.07 K/mm3 (0.00-0.23); BASOPHILS PERCENT AUTO 1 % (0-2); EOSINOPHILS ABSOLUTE AUTO 0.35 K/mm3 (0.00-0.68); EOSINOPHILS PERCENT AUTO 3 % (0-6); Hematocrit 42.4 % (33.0-51.0); Hemoglobin 13.5 g/dL (11.5-16.0); IMMATURE GRAN ABSOLUTE AUTO 0.16 K/mm3 (0.00-0.10); IMMATURE GRAN PERCENT AUTO 1 % (0-1); LYMPHOCYTES ABSOLUTE AUTO 2.98 K/mm3 (0.84-5.20); LYMPHOCYTES PERCENT AUTO 25 % (21-46); MONOCYTES ABSOLUTE AUTO 0.96 K/mm3 (0.16-1.47); MONOCYTES PERCENT AUTO 8 % (4-13); Mean Corpuscular HGB 27.7 pg (26.0-34.0); Mean Corpuscular HGB Conc 31.8 g/dL (31.5-36.5); Mean Corpuscular Volume 87 fL (80-100); Mean Platelet Volume 10.1 fL (9.1-12.4); NEUTROPHILS ABSOLUTE AUTO 7.31 K/mm3 (1.96-9.15); NEUTROPHILS PERCENT AUTO 62 % (41-73); Platelet Count 313 K/mm3 (150-400); RDW Coefficient Variation 13.6 % (11.7-14.2); RDW Standard Deviation 43.1 fL (35.1-46.3); Red Blood Cell Count 4.87 M/mm3 (3.80-5.20); White Blood Cell Count 11.83 K/mm3 (4.00-11.30)
[2020-06-04 18:10] LABS: Albumin, Blood 3.4 g/dL (3.4-5.0); Bilirubin, Total 0.2 mg/dL (0.1-1.0); Bun/Creatinine Ratio 12.2 (12.0-20.0); Calcium, Blood 9.1 mg/dL (8.5-10.1); Creatinine, Blood 1.31 mg/dL (0.40-1.00); Globulin, Blood 3.5 g/dL (2.2-4.0); Potassium, Blood 4.6 mmol/L (3.5-5.5); Total Protein, Blood 6.9 g/dL (6.4-8.2)
== END 2020-06-04 18:17 | disposition home or self-care (01) ==
LOC: ER 17:24
PROVIDERS: Physician Assistant
DX: T81.31XA Disruption of external operation (surgical) wound, not elsewhere classified, initial encounter (principal); F20.9 Schizophrenia, unspecified; E11.9 Type 2 diabetes mellitus without complications; I11.0 Hypertensive heart disease with heart failure; I50.9 Heart failure, unspecified; E78.5 Hyperlipidemia, unspecified; K21.9 Gastro-esophageal reflux disease without esophagitis; F17.210 Nicotine dependence, cigarettes, uncomplicated; Z79.4 Long term (current) use of insulin; Z87.442 Personal history of urinary calculi; Z91.040 Latex allergy status; Z79.899 Other long term (current) drug therapy; Y83.9 Surgical procedure, unspecified as the cause of abnormal reaction of the patient, or of later complication, without mention of misadventure at the time of the procedure
CPT/HCPCS: 36415; 80053; 81003; 85025; 99283

== ENCOUNTER 2020-06-22 11:36 | Emergency (ER) | payer MEDICARE, OTHER ==
[~2020-06-22] VITALS: Ht 165.1 cm; Wt 136.1 kg
== END 2020-06-22 15:20 | disposition home or self-care (01) ==
LOC: ER 11:36
DX: R10.31 Right lower quadrant pain (principal); I11.0 Hypertensive heart disease with heart failure; E11.9 Type 2 diabetes mellitus without complications; I50.9 Heart failure, unspecified; K21.9 Gastro-esophageal reflux disease without esophagitis; E78.5 Hyperlipidemia, unspecified; F17.210 Nicotine dependence, cigarettes, uncomplicated; Z48.00 Encounter for change or removal of nonsurgical wound dressing; Z79.899 Other long term (current) drug therapy; Z79.4 Long term (current) use of insulin; Z91.040 Latex allergy status
CPT/HCPCS: 76705; 99284-25; A9270

== ENCOUNTER → 2020-07-26 | Outpatient (CLI) | payer MEDICARE, OTHER ==
[~2020-07-26] MED LIST changes: +HYDCHL25 PO; +Voltaren100 GM TOP
[2020-07-26 10:20] LABS: BASOPHILS ABSOLUTE AUTO 0.03 K/mm3 (0.00-0.23); BASOPHILS PERCENT AUTO 0 % (0-2); EOSINOPHILS ABSOLUTE AUTO 0.16 K/mm3 (0.00-0.68); EOSINOPHILS PERCENT AUTO 2 % (0-6); Hemoglobin 14.1 g/dL (11.5-16.0); IMMATURE GRAN ABSOLUTE AUTO 0.08 K/mm3 (0.00-0.10); IMMATURE GRAN PERCENT AUTO 1 % (0-1); LYMPHOCYTES ABSOLUTE AUTO 1.97 K/mm3 (0.84-5.20); LYMPHOCYTES PERCENT AUTO 20 % (21-46); MONOCYTES ABSOLUTE AUTO 0.83 K/mm3 (0.16-1.47); MONOCYTES PERCENT AUTO 8 % (4-13); Mean Corpuscular HGB 28.7 pg (26.0-34.0); Mean Corpuscular HGB Conc 33.6 g/dL (31.5-36.5); Mean Corpuscular Volume 86 fL (80-100); Mean Platelet Volume 10.3 fL (9.1-12.4); NEUTROPHILS ABSOLUTE AUTO 7.05 K/mm3 (1.96-9.15); NEUTROPHILS PERCENT AUTO 70 % (41-73); Platelet Count 274 K/mm3 (150-400); RDW Coefficient Variation 13.3 % (11.7-14.2); RDW Standard Deviation 41.9 fL (35.1-46.3); Red Blood Cell Count 4.91 M/mm3 (3.80-5.20); White Blood Cell Count 10.12 K/mm3 (4.00-11.30)
[2020-07-26 10:31] LABS: Albumin, Blood 3.5 g/dL (3.4-5.0); Albumin/Globulin Ratio 0.9 (0.8-1.8); Bilirubin, Total 0.2 mg/dL (0.1-1.0); Bun/Creatinine Ratio 13.4 (12.0-20.0); Calcium, Blood 8.9 mg/dL (8.5-10.1); Creatinine, Blood 1.34 mg/dL (0.40-1.00); Globulin, Blood 3.8 g/dL (2.2-4.0); Potassium, Blood 4.7 mmol/L (3.5-5.5); Total Protein, Blood 7.3 g/dL (6.4-8.2)
== END ==
LOC: LAB 10:16 → LAB SHORT 10:16
PROVIDERS: Physician Assistant
DX: R10.9 Unspecified abdominal pain (principal)
CPT/HCPCS: 80053; 85025

== ENCOUNTER 2020-07-29 08:48 | Emergency (ER) | payer OTHER ==
[~2020-07-29] VITALS: Ht 165.1 cm; Wt 136.1 kg
[~2020-07-29 08:48] MED LIST changes: -HYDCHL25 PO; -Voltaren100 GM TOP
[2020-07-29] MEDS ORDERED: Percocet 5-3251 EACH PO (10:51)
== END 2020-07-29 10:57 | disposition home or self-care (01) ==
LOC: ER 08:48
DX: M25.561 Pain in right knee (principal); E11.9 Type 2 diabetes mellitus without complications; I11.0 Hypertensive heart disease with heart failure; I50.9 Heart failure, unspecified; E78.5 Hyperlipidemia, unspecified; K21.9 Gastro-esophageal reflux disease without esophagitis; F17.210 Nicotine dependence, cigarettes, uncomplicated; Z79.899 Other long term (current) drug therapy; Z87.442 Personal history of urinary calculi; Z91.040 Latex allergy status; Z88.8 Allergy status to other drugs, medicaments and biological substances; Z79.4 Long term (current) use of insulin
CPT/HCPCS: 73564; 99283-25; A9270

== ENCOUNTER 2020-08-14 19:01 | Emergency (ER) | payer OTHER ==
[~2020-08-14] VITALS: Ht 165.1 cm; Wt 136.1 kg
== END 2020-08-14 21:15 | disposition home or self-care (01) ==
LOC: ER 19:01
DX: M17.11 Unilateral primary osteoarthritis, right knee (principal); E11.9 Type 2 diabetes mellitus without complications; I11.0 Hypertensive heart disease with heart failure; I50.9 Heart failure, unspecified; K21.9 Gastro-esophageal reflux disease without esophagitis; E78.5 Hyperlipidemia, unspecified; F17.210 Nicotine dependence, cigarettes, uncomplicated; Z88.8 Allergy status to other drugs, medicaments and biological substances; Z79.4 Long term (current) use of insulin; Z91.040 Latex allergy status; Z79.899 Other long term (current) drug therapy; Z87.442 Personal history of urinary calculi
CPT/HCPCS: 99283; A9270

== ENCOUNTER 2020-09-19 14:07 | Emergency (ER) | payer OTHER ==
[~2020-09-19] VITALS: Ht 165.1 cm; Wt 134.7 kg
[2020-09-19] MEDS ORDERED: Voltaren100 GM TOP (15:41)
== END 2020-09-19 15:48 | disposition home or self-care (01) ==
LOC: ER 14:07
DX: M25.561 Pain in right knee (principal); I50.9 Heart failure, unspecified; E11.9 Type 2 diabetes mellitus without complications; I11.0 Hypertensive heart disease with heart failure; K21.9 Gastro-esophageal reflux disease without esophagitis; E78.5 Hyperlipidemia, unspecified; F17.210 Nicotine dependence, cigarettes, uncomplicated
CPT/HCPCS: 93971; 99283-25

== ENCOUNTER 2020-10-23 19:57 | Emergency (ER) | payer OTHER ==
[~2020-10-23] VITALS: Ht 165.1 cm; Wt 142.0 kg
[~2020-10-23 19:57] MED LIST changes: +Voltaren100 GM TOP
[2020-10-23 20:25] LABS: BASOPHILS ABSOLUTE AUTO 0.05 K/mm3 (0.00-0.23); BASOPHILS PERCENT AUTO 0 % (0-2); EOSINOPHILS ABSOLUTE AUTO 0.34 K/mm3 (0.00-0.68); EOSINOPHILS PERCENT AUTO 3 % (0-6); Hematocrit 42.1 % (33.0-51.0); Hemoglobin 14.2 g/dL (11.5-16.0); IMMATURE GRAN ABSOLUTE AUTO 0.05 K/mm3 (0.00-0.10); IMMATURE GRAN PERCENT AUTO 0 % (0-1); LYMPHOCYTES PERCENT AUTO 24 % (21-46); MONOCYTES ABSOLUTE AUTO 1.24 K/mm3 (0.16-1.47); MONOCYTES PERCENT AUTO 9 % (4-13); Mean Corpuscular HGB 28.4 pg (26.0-34.0); Mean Corpuscular HGB Conc 33.7 g/dL (31.5-36.5); Mean Corpuscular Volume 84 fL (80-100); Mean Platelet Volume 10.3 fL (9.1-12.4); NEUTROPHILS ABSOLUTE AUTO 8.26 K/mm3 (1.96-9.15); NEUTROPHILS PERCENT AUTO 63 % (41-73); Platelet Count 261 K/mm3 (150-400); RDW Coefficient Variation 13.9 % (11.7-14.2); RDW Standard Deviation 42.7 fL (35.1-46.3); White Blood Cell Count 13.14 K/mm3 (4.00-11.30)
[2020-10-23 20:44] LABS: Alanine Aminotransfer (ALT/SGP 31 U/L (12-78); Albumin, Blood 3.6 g/dL (3.4-5.0); Albumin/Globulin Ratio 1.1 (0.8-1.8); Alk Phos 94 U/L (50-136); Anion Gap 6 mmol/L (6-16); Aspartate Aminotrans (AST/SGOT 14 U/L (12-37); Bilirubin, Total 0.3 mg/dL (0.1-1.0); Blood Urea Nitrogen 27 mg/dL (8-24); CO2, Blood 27 mmol/L (21-32); Calcium, Blood 8.7 mg/dL (8.5-10.1); Chloride, Blood 101 mmol/L (98-108); Creatinine, Blood 1.42 mg/dL (0.40-1.00); Globulin, Blood 3.3 g/dL (2.2-4.0); Glomerular Filtration Rate 42 (60-); Glucose, Blood 138 mg/dL (70-99); Potassium, Blood 4.3 mmol/L (3.5-5.5); Sodium, Blood 134 mmol/L (136-145); Total Protein, Blood 6.9 g/dL (6.4-8.2); Troponin I <0.015 ng/mL (0.000-0.040)
[2020-10-23] MEDS ORDERED: HYDCHL25 PO (21:30)
== END 2020-10-23 22:25 | disposition home or self-care (01) ==
LOC: ER 19:57
PROVIDERS: Emergency Medicine
DX: I49.3 Ventricular premature depolarization (principal); Z79.899 Other long term (current) drug therapy; Z79.4 Long term (current) use of insulin; Z88.5 Allergy status to narcotic agent; Z91.040 Latex allergy status
CPT/HCPCS: 36415; 80053; 84484; 85025; 93005; 93010; 99284-25

== ENCOUNTER 2020-11-13 19:34 | Emergency (ER) | payer OTHER ==
[~2020-11-13] VITALS: Ht 165.1 cm; Wt 140.2 kg
[~2020-11-13 19:34] MED LIST changes: +HYDCHL25 PO
[2020-11-13 20:05] LABS: BASOPHILS ABSOLUTE AUTO 0.04 K/mm3 (0.00-0.23); BASOPHILS PERCENT AUTO 0 % (0-2); EOSINOPHILS ABSOLUTE AUTO 0.33 K/mm3 (0.00-0.68); EOSINOPHILS PERCENT AUTO 3 % (0-6); Hematocrit 38.6 % (33.0-51.0); Hemoglobin 13.1 g/dL (11.5-16.0); IMMATURE GRAN ABSOLUTE AUTO 0.08 K/mm3 (0.00-0.10); IMMATURE GRAN PERCENT AUTO 1 % (0-1); LYMPHOCYTES ABSOLUTE AUTO 2.49 K/mm3 (0.84-5.20); LYMPHOCYTES PERCENT AUTO 24 % (21-46); MONOCYTES ABSOLUTE AUTO 0.98 K/mm3 (0.16-1.47); MONOCYTES PERCENT AUTO 10 % (4-13); Mean Corpuscular HGB 28.8 pg (26.0-34.0); Mean Corpuscular HGB Conc 33.9 g/dL (31.5-36.5); Mean Corpuscular Volume 85 fL (80-100); NEUTROPHILS PERCENT AUTO 62 % (41-73); Platelet Count 266 K/mm3 (150-400); RDW Coefficient Variation 13.2 % (11.7-14.2); RDW Standard Deviation 41.4 fL (35.1-46.3); Red Blood Cell Count 4.55 M/mm3 (3.80-5.20); White Blood Cell Count 10.22 K/mm3 (4.00-11.30)
[2020-11-13 20:22] LABS: C-REACTIVE PROTEIN, EXT RANGE 1.09 mg/dL (0.000-0.300)
[2020-11-13 20:24] LABS: Albumin, Blood 3.3 g/dL (3.4-5.0); Bilirubin, Total 0.2 mg/dL (0.1-1.0); Bun/Creatinine Ratio 21.9 (12.0-20.0); Calcium, Blood 8.9 mg/dL (8.5-10.1); Creatinine, Blood 1.14 mg/dL (0.40-1.00); Globulin, Blood 3.4 g/dL (2.2-4.0); Potassium, Blood 4.3 mmol/L (3.5-5.5); Total Protein, Blood 6.7 g/dL (6.4-8.2)
== END 2020-11-13 22:15 | disposition home or self-care (01) ==
LOC: ER 19:34
PROVIDERS: Physician Assistant
DX: M25.561 Pain in right knee (principal); Z98.890 Other specified postprocedural states; Z88.5 Allergy status to narcotic agent; Z91.040 Latex allergy status; Z88.8 Allergy status to other drugs, medicaments and biological substances; Z79.4 Long term (current) use of insulin; Z79.899 Other long term (current) drug therapy
CPT/HCPCS: 36415; 80053; 83605; 85025; 85651; 86140; 99283

== ENCOUNTER 2020-11-17 15:52 | Emergency (ER) | payer OTHER ==
[~2020-11-17] VITALS: Ht 165.1 cm; Wt 150.1 kg
== END 2020-11-17 17:59 | disposition left against medical advice (07) ==
LOC: ER 15:52
DX: Z53.21 Procedure and treatment not carried out due to patient leaving prior to being seen by health care provider (principal)

== ENCOUNTER 2021-02-17 15:59 | Observation (INO) | payer OTHER ==
[~2021-02-17] VITALS: Ht 152.4 cm; Wt 140.2 kg
[2021-02-17 16:37] LABS: BASOPHILS ABSOLUTE AUTO 0.06 K/mm3 (0.00-0.23); BASOPHILS PERCENT AUTO 0 % (0-2); EOSINOPHILS ABSOLUTE AUTO 0.08 K/mm3 (0.00-0.68); EOSINOPHILS PERCENT AUTO 1 % (0-6); Hematocrit 42.4 % (33.0-51.0); Hemoglobin 14.6 g/dL (11.5-16.0); IMMATURE GRAN ABSOLUTE AUTO 0.11 K/mm3 (0.00-0.10); IMMATURE GRAN PERCENT AUTO 1 % (0-1); LYMPHOCYTES ABSOLUTE AUTO 2.03 K/mm3 (0.84-5.20); LYMPHOCYTES PERCENT AUTO 13 % (21-46); MONOCYTES ABSOLUTE AUTO 1.18 K/mm3 (0.16-1.47); MONOCYTES PERCENT AUTO 8 % (4-13); Mean Corpuscular HGB 28.7 pg (26.0-34.0); Mean Corpuscular HGB Conc 34.4 g/dL (31.5-36.5); Mean Corpuscular Volume 83 fL (80-100); Mean Platelet Volume 9.7 fL (9.1-12.4); NEUTROPHILS ABSOLUTE AUTO 11.84 K/mm3 (1.96-9.15); NEUTROPHILS PERCENT AUTO 77 % (41-73); Platelet Count 314 K/mm3 (150-400); RDW Coefficient Variation 14.4 % (11.7-14.2); RDW Standard Deviation 43.8 fL (35.1-46.3); Red Blood Cell Count 5.09 M/mm3 (3.80-5.20)
[2021-02-17 16:57] LABS: Alanine Aminotransfer (ALT/SGP 30 U/L (12-78); Albumin, Blood 4.1 g/dL (3.4-5.0); Albumin/Globulin Ratio 1.1 (0.8-1.8); Alk Phos 86 U/L (50-136); Anion Gap 7 mmol/L (6-16); Aspartate Aminotrans (AST/SGOT 17 U/L (12-37); Bilirubin, Total 0.4 mg/dL (0.1-1.0); Blood Urea Nitrogen 12 mg/dL (8-24); Bun/Creatinine Ratio 10.4 (12.0-20.0); CO2, Blood 25 mmol/L (21-32); Calcium, Blood 9.2 mg/dL (8.5-10.1); Chloride, Blood 99 mmol/L (98-108); Creatinine, Blood 1.15 mg/dL (0.40-1.00); Ethanol (Alcohol), Blood, Med <3 mg/dL; Globulin, Blood 3.8 g/dL (2.2-4.0); Glomerular Filtration Rate 51 (60-); Glucose, Blood 159 mg/dL (70-99); Potassium, Blood 4.1 mmol/L (3.5-5.5); Salicylate 6.1 mg/dL (2.8-20.0); Sodium, Blood 131 mmol/L (136-145); Total Protein, Blood 7.9 g/dL (6.4-8.2)
[2021-02-17 16:59] LABS: Acetaminophen, Random <2.0 ug/mL (10.0-30.0)
== END 2021-02-17 18:41 | disposition home or self-care (01) ==
LOC: ER 15:59 → EOR 16:00
PROVIDERS: Physician Assistant; ADMIT Emergency Medicine
DX: F29 Unspecified psychosis not due to a substance or known physiological condition (principal); F25.9 Schizoaffective disorder, unspecified; I13.0 Hypertensive heart and chronic kidney disease with heart failure and stage 1 through stage 4 chronic kidney disease, or unspecified chronic kidney disease; I50.9 Heart failure, unspecified; N18.9 Chronic kidney disease, unspecified; E11.22 Type 2 diabetes mellitus with diabetic chronic kidney disease; F17.210 Nicotine dependence, cigarettes, uncomplicated; Z91.040 Latex allergy status; Z88.8 Allergy status to other drugs, medicaments and biological substances
CPT/HCPCS: 36415; 80053; 85025; 86592; 99285-25; A9270; G0378; G0480

== ENCOUNTER 2021-02-23 19:47 | Emergency (ER) | payer OTHER ==
[~2021-02-23] VITALS: Ht 165.1 cm; Wt 136.1 kg
[2021-02-23 21:06] LABS: BASOPHILS ABSOLUTE AUTO 0.07 K/mm3 (0.00-0.23); BASOPHILS PERCENT AUTO 0 % (0-2); EOSINOPHILS ABSOLUTE AUTO 0.18 K/mm3 (0.00-0.68); EOSINOPHILS PERCENT AUTO 1 % (0-6); Hematocrit 42.3 % (33.0-51.0); Hemoglobin 14.8 g/dL (11.5-16.0); IMMATURE GRAN ABSOLUTE AUTO 0.19 K/mm3 (0.00-0.10); IMMATURE GRAN PERCENT AUTO 1 % (0-1); LYMPHOCYTES ABSOLUTE AUTO 3.38 K/mm3 (0.84-5.20); LYMPHOCYTES PERCENT AUTO 19 % (21-46); MONOCYTES ABSOLUTE AUTO 1.76 K/mm3 (0.16-1.47); MONOCYTES PERCENT AUTO 10 % (4-13); Mean Corpuscular HGB 28.5 pg (26.0-34.0); Mean Corpuscular Volume 81 fL (80-100); Mean Platelet Volume 9.5 fL (9.1-12.4); NEUTROPHILS ABSOLUTE AUTO 11.98 K/mm3 (1.96-9.15); NEUTROPHILS PERCENT AUTO 68 % (41-73); Platelet Count 354 K/mm3 (150-400); RDW Coefficient Variation 13.6 % (11.7-14.2); White Blood Cell Count 17.56 K/mm3 (4.00-11.30)
[2021-02-23 21:24] LABS: Alanine Aminotransfer (ALT/SGP 30 U/L (12-78); Albumin, Blood 3.8 g/dL (3.4-5.0); Alk Phos 85 U/L (50-136); Anion Gap 8 mmol/L (6-16); Aspartate Aminotrans (AST/SGOT 17 U/L (12-37); Bilirubin, Total 0.3 mg/dL (0.1-1.0); Blood Urea Nitrogen 16 mg/dL (8-24); Bun/Creatinine Ratio 13.8 (12.0-20.0); CO2, Blood 26 mmol/L (21-32); Calcium, Blood 9.2 mg/dL (8.5-10.1); Chloride, Blood 92 mmol/L (98-108); Creatinine, Blood 1.16 mg/dL (0.40-1.00); Ethanol (Alcohol), Blood, Med <3 mg/dL; Globulin, Blood 3.9 g/dL (2.2-4.0); Glomerular Filtration Rate 50 (60-); Glucose, Blood 97 mg/dL (70-99); Potassium, Blood 4.4 mmol/L (3.5-5.5); Salicylate 6.7 mg/dL (2.8-20.0); Sodium, Blood 126 mmol/L (136-145); Total Protein, Blood 7.7 g/dL (6.4-8.2)
[2021-02-23 21:25] LABS: Acetaminophen, Random <2.0 ug/mL (10.0-30.0)
[2021-02-23 21:37] LABS: Source, Urine Clean Catch
[2021-02-23 21:39] LABS: Bilirubin, Urine Neg (Neg); Blood, Urine Neg (Neg); Glucose Qualitative, Urine Neg (Neg); Ketones, Urine Neg (Neg); Leukocyte Esterase, Urine Neg (Neg); Nitrite, Urine Neg (Neg); Protein, Urine Neg (Neg); Urobilinogen, Urine NORM (Normal)
[2021-02-23 21:44] LABS: Appearance, Urine Clear (Clear); Color, Urine Yellow (P-Yellow)
[2021-02-23 21:51] LABS: U Amphetamine Screen Not Detected; U Barbituate Screen Not Detected; U Benzodiazapine Screen Not Detected; U Buprenorphine Screen Not Detected; U Cannabinoids Screen Not Detected; U Cocaine Screen Not Detected; U Methadone Screen Not Detected; U Methamphetamine Screen Not Detected; U Opiates Screen Not Detected; U Oxycodone Screen Not Detected; U Phencyclidine Screen Not Detected; U Propoxyphene Screen Not Detected
[2021-02-23] MEDS ORDERED: LORA.5 PO (22:05)
== END 2021-02-23 22:16 | disposition home or self-care (01) ==
LOC: ER 19:47
PROVIDERS: Physician Assistant
DX: F32.9 Major depressive disorder, single episode, unspecified (principal); R45.851 Suicidal ideations; F17.210 Nicotine dependence, cigarettes, uncomplicated; E11.22 Type 2 diabetes mellitus with diabetic chronic kidney disease; I12.9 Hypertensive chronic kidney disease with stage 1 through stage 4 chronic kidney disease, or unspecified chronic kidney disease; N18.9 Chronic kidney disease, unspecified; Z91.040 Latex allergy status; Z88.8 Allergy status to other drugs, medicaments and biological substances; Z79.899 Other long term (current) drug therapy; Z79.4 Long term (current) use of insulin
CPT/HCPCS: 36415; 80053; 81003; 81025; 85025; 99284; A9270; G0480

== ENCOUNTER 2021-03-26 11:58 | Emergency (ER) | payer OTHER ==
[~2021-03-26] VITALS: Ht 162.6 cm; Wt 135.6 kg
[~2021-03-26 11:58] MED LIST changes: +LORA.5 PO; +Prednisone20 MG PO
[2021-03-26 12:40] LABS: BASOPHILS ABSOLUTE AUTO 0.09 K/mm3 (0.00-0.23); BASOPHILS PERCENT AUTO 1 % (0-2); EOSINOPHILS ABSOLUTE AUTO 0.16 K/mm3 (0.00-0.68); EOSINOPHILS PERCENT AUTO 1 % (0-6); Hematocrit 43.2 % (33.0-51.0); Hemoglobin 14.4 g/dL (11.5-16.0); IMMATURE GRAN ABSOLUTE AUTO 0.23 K/mm3 (0.00-0.10); IMMATURE GRAN PERCENT AUTO 2 % (0-1); LYMPHOCYTES ABSOLUTE AUTO 3.34 K/mm3 (0.84-5.20); LYMPHOCYTES PERCENT AUTO 23 % (21-46); MONOCYTES ABSOLUTE AUTO 1.08 K/mm3 (0.16-1.47); MONOCYTES PERCENT AUTO 7 % (4-13); Mean Corpuscular HGB 28.5 pg (26.0-34.0); Mean Corpuscular HGB Conc 33.3 g/dL (31.5-36.5); Mean Corpuscular Volume 86 fL (80-100); Mean Platelet Volume 9.8 fL (9.1-12.4); NEUTROPHILS ABSOLUTE AUTO 9.89 K/mm3 (1.96-9.15); NEUTROPHILS PERCENT AUTO 67 % (41-73); Platelet Count 377 K/mm3 (150-400); Red Blood Cell Count 5.05 M/mm3 (3.80-5.20); White Blood Cell Count 14.79 K/mm3 (4.00-11.30)
[2021-03-26 13:00] LABS: Acetaminophen, Random <2.0 ug/mL (10.0-30.0); Alanine Aminotransfer (ALT/SGP 29 U/L (12-78); Albumin, Blood 3.7 g/dL (3.4-5.0); Alk Phos 85 U/L (50-136); Anion Gap 7 mmol/L (6-16); Aspartate Aminotrans (AST/SGOT 15 U/L (12-37); Bilirubin, Total 0.3 mg/dL (0.1-1.0); Blood Urea Nitrogen 19 mg/dL (8-24); Bun/Creatinine Ratio 14.8 (12.0-20.0); CO2, Blood 27 mmol/L (21-32); Calcium, Blood 9.4 mg/dL (8.5-10.1); Chloride, Blood 100 mmol/L (98-108); Creatinine, Blood 1.28 mg/dL (0.40-1.00); Ethanol (Alcohol), Blood, Med <3 mg/dL; Globulin, Blood 3.8 g/dL (2.2-4.0); Glomerular Filtration Rate 45 (60-); Glucose, Blood 130 mg/dL (70-99); Salicylate 5.9 mg/dL (2.8-20.0); Sodium, Blood 134 mmol/L (136-145); Total Protein, Blood 7.5 g/dL (6.4-8.2)
[2021-03-26 13:37] LABS: Source, Urine Clean Catch
[2021-03-26] MEDS ORDERED: Amlodipine Bes2.5 MG (13:41)
[2021-03-26 13:50] LABS: Appearance, Urine Clear (Clear); Bilirubin, Urine Neg (Neg); Blood, Urine Neg (Neg); Color, Urine Yellow (P-Yellow); Glucose Qualitative, Urine Neg (Neg); Ketones, Urine Neg (Neg); Leukocyte Esterase, Urine Neg (Neg); Nitrite, Urine Neg (Neg); Protein, Urine Neg (Neg); Urobilinogen, Urine NORM (Normal)
[2021-03-26 14:14] LABS: U Amphetamine Screen Not Detected; U Barbituate Screen Not Detected; U Benzodiazapine Screen Not Detected; U Buprenorphine Screen Not Detected; U Cannabinoids Screen Not Detected; U Cocaine Screen Not Detected; U Methadone Screen Not Detected; U Methamphetamine Screen Not Detected; U Opiates Screen Not Detected; U Oxycodone Screen Not Detected; U Phencyclidine Screen Not Detected; U Propoxyphene Screen Not Detected
== END 2021-03-26 15:00 | disposition home or self-care (01) ==
LOC: ER 11:58
PROVIDERS: Physician Assistant
DX: R10.2 Pelvic and perineal pain (principal); I13.0 Hypertensive heart and chronic kidney disease with heart failure and stage 1 through stage 4 chronic kidney disease, or unspecified chronic kidney disease; E11.22 Type 2 diabetes mellitus with diabetic chronic kidney disease; I50.9 Heart failure, unspecified; N18.9 Chronic kidney disease, unspecified; F17.210 Nicotine dependence, cigarettes, uncomplicated; Z91.040 Latex allergy status; Z88.8 Allergy status to other drugs, medicaments and biological substances; Z79.899 Other long term (current) drug therapy; Z79.4 Long term (current) use of insulin
CPT/HCPCS: 36415; 80053; 81003; 81025; 85025; 93005; 93010; 99284-25; G0480

== ENCOUNTER 2021-05-26 22:18 | Emergency (ER) | payer OTHER ==
[~2021-05-26] VITALS: Ht 165.1 cm; Wt 131.5 kg
[~2021-05-26 22:18] MED LIST changes: +Amlodipine Bes2.5 MG
[2021-05-26] MEDS ORDERED: IBU600 MG PO (22:48)
== END 2021-05-27 | disposition home or self-care (01) ==
LOC: ER 22:18
DX: M54.50 Low back pain, unspecified (principal); F25.9 Schizoaffective disorder, unspecified; I13.0 Hypertensive heart and chronic kidney disease with heart failure and stage 1 through stage 4 chronic kidney disease, or unspecified chronic kidney disease; E11.22 Type 2 diabetes mellitus with diabetic chronic kidney disease; N18.9 Chronic kidney disease, unspecified; I50.9 Heart failure, unspecified; F17.210 Nicotine dependence, cigarettes, uncomplicated; Z91.040 Latex allergy status; Z88.8 Allergy status to other drugs, medicaments and biological substances; Z79.4 Long term (current) use of insulin; Z79.84 Long term (current) use of oral hypoglycemic drugs; Z79.899 Other long term (current) drug therapy
CPT/HCPCS: 72100; A9270

== ENCOUNTER 2021-06-23 15:25 | Emergency (ER) | payer OTHER ==
[~2021-06-23] VITALS: Ht 165.1 cm; Wt 131.1 kg
[~2021-06-23 15:25] MED LIST changes: +IBU600 MG PO
[2021-06-23 16:50] LABS: Source, Urine Clean Catch
[2021-06-23 16:55] LABS: Appearance, Urine Clear (Clear); Bilirubin, Urine Neg (Neg); Blood, Urine Neg (Neg); Color, Urine Yellow (P-Yellow); Glucose Qualitative, Urine 2+ (Neg); Ketones, Urine Neg (Neg); Leukocyte Esterase, Urine Neg (Neg); Nitrite, Urine Neg (Neg); Protein, Urine Neg (Neg); Specific Gravity, Urine 1.005 (1.003-1.022); Urobilinogen, Urine NORM (Normal)
[2021-06-23] MEDS ORDERED: DOXY100 PO (17:36)
[2021-06-23] MEDS ORDERED: METR500 PO (17:36)
[2021-06-23] MEDS ORDERED: Acetaminophen500 MG PO (17:36)
[2021-06-23 19:12] LABS: Candida species (DNA Probe) Positive (NEGATIVE); G. vaginalis (DNA Probe) Negative (NEGATIVE); T. vaginalis (DNA Probe) Negative (NEGATIVE)
[2021-06-23] MEDS ORDERED: Diflucan150 MG PO (23:37)
[2021-06-25 03:08] LABS: CHLAMYDIA TRACHOMATIS, NAA Negative (Negative); NEISSERIA GONORRHOEAE, NAA Negative (Negative)
== END 2021-06-23 17:50 | disposition home or self-care (01) ==
LOC: ER 15:25
PROVIDERS: Physician Assistant; Student in an Organized Health Care Education/Training Program
DX: N89.8 Other specified noninflammatory disorders of vagina (principal); R10.2 Pelvic and perineal pain; Z91.040 Latex allergy status; Z88.8 Allergy status to other drugs, medicaments and biological substances; Z79.899 Other long term (current) drug therapy; Z79.84 Long term (current) use of oral hypoglycemic drugs; Z79.4 Long term (current) use of insulin; F17.210 Nicotine dependence, cigarettes, uncomplicated; E11.22 Type 2 diabetes mellitus with diabetic chronic kidney disease; I13.0 Hypertensive heart and chronic kidney disease with heart failure and stage 1 through stage 4 chronic kidney disease, or unspecified chronic kidney disease; I50.9 Heart failure, unspecified; N18.9 Chronic kidney disease, unspecified
CPT/HCPCS: 81003; 81025; 87480; 87491; 87510; 87591; 87660; A9270; J0696

== ENCOUNTER 2021-08-28 01:30 | Emergency (ER) | payer OTHER ==
[~2021-08-28] VITALS: Ht 165.1 cm; Wt 131.5 kg
[~2021-08-28 01:30] MED LIST changes: +Acetaminophen500 MG PO; +DOXY100 PO; +Diflucan150 MG PO; +METR500 PO
[2021-08-28 03:27] LABS: Source, Urine Clean Catch
[2021-08-28 03:36] LABS: Bilirubin, Urine Neg (Neg); Blood, Urine Neg (Neg); Glucose Qualitative, Urine Neg (Neg); Ketones, Urine Neg (Neg); Leukocyte Esterase, Urine Neg (Neg); Nitrite, Urine Neg (Neg); Protein, Urine Neg (Neg); Specific Gravity, Urine 1.005 (1.003-1.022); Urobilinogen, Urine NORM (Normal)
[2021-08-28 03:44] LABS: Appearance, Urine Clear (Clear); Color, Urine Yellow (P-Yellow)
[2021-08-28 03:44] LABS: BASOPHILS ABSOLUTE AUTO 0.05 K/mm3 (0.00-0.23); BASOPHILS PERCENT AUTO 1 % (0-2); EOSINOPHILS ABSOLUTE AUTO 0.32 K/mm3 (0.00-0.68); EOSINOPHILS PERCENT AUTO 3 % (0-6); Hematocrit 40.9 % (33.0-51.0); Hemoglobin 13.7 g/dL (11.5-16.0); IMMATURE GRAN ABSOLUTE AUTO 0.08 K/mm3 (0.00-0.10); IMMATURE GRAN PERCENT AUTO 1 % (0-1); LYMPHOCYTES PERCENT AUTO 20 % (21-46); MONOCYTES ABSOLUTE AUTO 0.92 K/mm3 (0.16-1.47); MONOCYTES PERCENT AUTO 9 % (4-13); Mean Corpuscular HGB 27.5 pg (26.0-34.0); Mean Corpuscular HGB Conc 33.5 g/dL (31.5-36.5); Mean Corpuscular Volume 82 fL (80-100); Mean Platelet Volume 9.2 fL (9.1-12.4); NEUTROPHILS PERCENT AUTO 67 % (41-73); Platelet Count 368 K/mm3 (150-400); RDW Coefficient Variation 13.2 % (11.7-14.2); RDW Standard Deviation 39.8 fL (35.1-46.3); Red Blood Cell Count 4.98 M/mm3 (3.80-5.20); White Blood Cell Count 10.87 K/mm3 (4.00-11.30)
[2021-08-28 04:03] LABS: Alanine Aminotransfer (ALT/SGP 22 U/L (12-78); Albumin, Blood 3.7 g/dL (3.4-5.0); Albumin/Globulin Ratio 0.9 (0.8-1.8); Alk Phos 109 U/L (50-136); Anion Gap 6 mmol/L (6-16); Aspartate Aminotrans (AST/SGOT 5 U/L (12-37); Bilirubin, Total 0.4 mg/dL (0.1-1.0); Blood Urea Nitrogen 16 mg/dL (8-24); Bun/Creatinine Ratio 19.4 (12.0-20.0); CO2, Blood 26 mmol/L (21-32); Chloride, Blood 96 mmol/L (98-108); Creatinine, Blood 0.82 mg/dL (0.40-1.00); Globulin, Blood 3.9 g/dL (2.2-4.0); Glomerular Filtration Rate >60 (60-); Glucose, Blood 163 mg/dL (70-99); Potassium, Blood 4.1 mmol/L (3.5-5.5); Sodium, Blood 128 mmol/L (136-145); Total Protein, Blood 7.6 g/dL (6.4-8.2)
== END 2021-08-28 05:04 | disposition home or self-care (01) ==
LOC: ER 01:30
PROVIDERS: Student in an Organized Health Care Education/Training Program
DX: R51.9 Headache, unspecified (principal); R10.9 Unspecified abdominal pain; I13.0 Hypertensive heart and chronic kidney disease with heart failure and stage 1 through stage 4 chronic kidney disease, or unspecified chronic kidney disease; I50.9 Heart failure, unspecified; N18.9 Chronic kidney disease, unspecified; F17.210 Nicotine dependence, cigarettes, uncomplicated; E11.22 Type 2 diabetes mellitus with diabetic chronic kidney disease; Z79.4 Long term (current) use of insulin; Z91.040 Latex allergy status
CPT/HCPCS: 36415; 70450; 80053; 81003; 83690; 85025; 96372; 99284-25; A9270; J1790

== ENCOUNTER 2023-01-22 17:07 | Observation (INO) | payer MEDICARE, OTHER ==
[~2023-01-22] VITALS: Ht 165.1 cm; Wt 99.8 kg
[2023-01-22 17:33] LABS: BASOPHILS ABSOLUTE AUTO 0.02 K/mm3 (0.00-0.23); BASOPHILS PERCENT AUTO 0 % (0-2); EOSINOPHILS ABSOLUTE AUTO 0.05 K/mm3 (0.00-0.68); EOSINOPHILS PERCENT AUTO 1 % (0-6); Hematocrit 39.4 % (33.0-51.0); Hemoglobin 13.8 g/dL (11.5-16.0); IMMATURE GRAN ABSOLUTE AUTO 0.05 K/mm3 (0.00-0.10); IMMATURE GRAN PERCENT AUTO 1 % (0-1); LYMPHOCYTES ABSOLUTE AUTO 1.47 K/mm3 (0.84-5.20); LYMPHOCYTES PERCENT AUTO 19 % (21-46); MONOCYTES ABSOLUTE AUTO 1.27 K/mm3 (0.16-1.47); MONOCYTES PERCENT AUTO 16 % (4-13); Mean Corpuscular HGB 27.6 pg (26.0-34.0); Mean Corpuscular Volume 79 fL (80-100); Mean Platelet Volume 10.1 fL (9.1-12.4); NEUTROPHILS ABSOLUTE AUTO 5.07 K/mm3 (1.96-9.15); NEUTROPHILS PERCENT AUTO 64 % (41-73); Platelet Count 239 K/mm3 (150-400); RDW Coefficient Variation 13.4 % (11.7-14.2); RDW Standard Deviation 38.3 fL (35.1-46.3); White Blood Cell Count 7.93 K/mm3 (4.00-11.30)
[2023-01-22 17:51] LABS: Salicylate <1.7 mg/dL (2.8-20.0)
[2023-01-22 18:01] LABS: Acetaminophen, Random <2.0 ug/mL (10.0-30.0); Alanine Aminotransfer (ALT/SGP 63 U/L (12-78); Albumin, Blood 3.4 g/dL (3.4-5.0); Albumin/Globulin Ratio 0.9 (0.8-1.8); Alk Phos 90 U/L (50-136); Anion Gap 11 mmol/L (6-16); Aspartate Aminotrans (AST/SGOT 33 U/L (12-37); Bilirubin, Total 0.4 mg/dL (0.1-1.0); Blood Urea Nitrogen 17 mg/dL (8-24); CO2, Blood 20 mmol/L (21-32); Calcium, Blood 8.9 mg/dL (8.5-10.1); Chloride, Blood 109 mmol/L (98-108); Creatinine, Blood 0.94 mg/dL (0.40-1.00); Globulin, Blood 3.8 g/dL (2.2-4.0); Glomerular Filtration Rate 75 (60-); Glucose, Blood 192 mg/dL (70-99); Potassium, Blood 3.7 mmol/L (3.5-5.5); Sodium, Blood 140 mmol/L (136-145); Total Protein, Blood 7.2 g/dL (6.4-8.2)
[2023-01-22 18:51] LABS: Source, Urine Voided
[2023-01-22 18:57] LABS: Appearance, Urine Hazy (Clear); Bilirubin, Urine Neg (Neg); Blood, Urine 1+ (Neg); Color, Urine Yellow (P-Yellow); Glucose Qualitative, Urine Neg (Neg); Ketones, Urine 3+ (Neg); Leukocyte Esterase, Urine 1+ (Neg); Nitrite, Urine Neg (Neg); Protein, Urine 2+ (Neg); Urobilinogen, Urine 2+ (Normal)
[2023-01-22 19:06] LABS: Bacteria Many /hpf; Red Blood Cells, Urine 0-2 /hpf (0-2); Squamous Epithelial Cells Many /hpf (Few)
[2023-01-22 19:09] LABS: U Amphetamine Screen Not Detected; U Barbituate Screen Not Detected; U Benzodiazapine Screen Not Detected; U Buprenorphine Screen Not Detected; U Cannabinoids Screen Not Detected; U Cocaine Screen Not Detected; U Methadone Screen Not Detected; U Methamphetamine Screen Not Detected; U Opiates Screen Not Detected; U Oxycodone Screen Not Detected; U Phencyclidine Screen Not Detected; U Propoxyphene Screen Not Detected
[2023-01-23] MEDS ORDERED: INSULANI SC (09:21)
[2023-01-23] MEDS ORDERED: HUMALOG JU100 UNIT/2 SC (09:22)
[2023-01-23] MEDS ORDERED: INSULIN AS100 UNIT/8 SC (09:24)
[2023-01-23] MEDS ORDERED: AMITRIPTYLINE100 M6 PO (11:25)
[2023-01-23] MEDS ORDERED: BRINTELLIX20 MG PO (11:26)
[2023-01-23] MEDS ORDERED: Hydroxyzine HCl50 MG (11:26)
[2023-01-23] MEDS ORDERED: ASENAPINE MALEA10 MG SL (11:27)
[2023-01-23] MEDS ORDERED: PROP60 PO (11:28)
[2023-01-23] MEDS ORDERED: LYBALVI PO (11:29)
[2023-01-24 20:03] VITALS: BP 118/56
== END 2023-01-25 00:31 ==
LOC: ER 17:07 → EOR 17:08
PROVIDERS: Emergency Medicine; ADMIT Emergency Medicine
DX: F25.1 Schizoaffective disorder, depressive type (principal); E11.65 Type 2 diabetes mellitus with hyperglycemia; I13.0 Hypertensive heart and chronic kidney disease with heart failure and stage 1 through stage 4 chronic kidney disease, or unspecified chronic kidney disease; E11.22 Type 2 diabetes mellitus with diabetic chronic kidney disease; N18.9 Chronic kidney disease, unspecified; I50.9 Heart failure, unspecified; E11.42 Type 2 diabetes mellitus with diabetic polyneuropathy; F17.210 Nicotine dependence, cigarettes, uncomplicated; Z90.5 Acquired absence of kidney; Z88.8 Allergy status to other drugs, medicaments and biological substances; Z79.4 Long term (current) use of insulin; Z79.899 Other long term (current) drug therapy
CPT/HCPCS: 70450; 71045; 80053; 81001; 82947; 85025; 87086; 93005; 93010; 96374; 99285-25; A9270; G0378; G0480; J1630; J1815; Q3014

== ENCOUNTER 2023-11-07 18:40 | Emergency (ER) | payer MEDICARE, OTHER ==
[~2023-11-07] VITALS: Ht 165.1 cm; Wt 154.2 kg
[~2023-11-07 18:40] MED LIST changes: +AMITRIPTYLINE100 M6 PO; +ASENAPINE MALEA10 MG SL; +ATOM10 PO; +BRINTELLIX20 MG PO; +FLUV50 PO; +FURO20 PO; +HUMALOG JU100 UNIT/2 SC; +Hydroxyzine HCl50 MG; +INSULANI SC; +INSULIN AS100 UNIT/8 SC; +LYBALVI PO; +PROP60 PO; +QUETIAPINE FUM10011 PO
[2023-11-07 19:21] LABS: BASOPHILS ABSOLUTE AUTO 0.03 K/mm3 (0.00-0.23); BASOPHILS PERCENT AUTO 0 % (0-2); EOSINOPHILS ABSOLUTE AUTO 0.21 K/mm3 (0.00-0.68); EOSINOPHILS PERCENT AUTO 2 % (0-6); Hematocrit 41.3 % (33.0-51.0); Hemoglobin 13.9 g/dL (11.5-16.0); IMMATURE GRAN ABSOLUTE AUTO 0.08 K/mm3 (0.00-0.10); IMMATURE GRAN PERCENT AUTO 1 % (0-1); LYMPHOCYTES ABSOLUTE AUTO 2.32 K/mm3 (0.84-5.20); LYMPHOCYTES PERCENT AUTO 25 % (21-46); MONOCYTES ABSOLUTE AUTO 0.82 K/mm3 (0.16-1.47); MONOCYTES PERCENT AUTO 9 % (4-13); Mean Corpuscular HGB 28.4 pg (26.0-34.0); Mean Corpuscular HGB Conc 33.7 g/dL (31.5-36.5); Mean Corpuscular Volume 85 fL (80-100); Mean Platelet Volume 10.6 fL (9.1-12.4); NEUTROPHILS ABSOLUTE AUTO 5.82 K/mm3 (1.96-9.15); NEUTROPHILS PERCENT AUTO 63 % (41-73); Platelet Count 247 K/mm3 (150-400); RDW Standard Deviation 40.2 fL (35.1-46.3); Red Blood Cell Count 4.89 M/mm3 (3.80-5.20); White Blood Cell Count 9.28 K/mm3 (4.00-11.30)
[2023-11-07] MEDS ORDERED: Ketorolac Tromethamine 15mg Vial IV ONE (19:40)
[2023-11-07] MEDS ORDERED: Insulin Glargine-Yfgn 100 Unit/mL 3 ML SYR SC ONE (19:40)
[2023-11-07] MEDS ORDERED: NS 1,000 ML BAG IR SCH (19:40)
[2023-11-07 19:45] LABS: Albumin, Blood 3.3 g/dL (3.4-5.0); Bilirubin, Total 0.1 mg/dL (0.1-1.0); Bun/Creatinine Ratio 21.7 (12.0-20.0); Calcium, Blood 8.9 mg/dL (8.5-10.1); Creatinine, Blood 0.74 mg/dL (0.40-1.00); Globulin, Blood 3.4 g/dL (2.2-4.0); Potassium, Blood 4.3 mmol/L (3.5-5.5); Total Protein, Blood 6.7 g/dL (6.4-8.2)
[2023-11-07] MEDS ORDERED: NS 1,000 ML IV SCH (19:55)
[2023-11-07 19:58] LABS: Source, Urine Clean Catch
[2023-11-07 20:07] LABS: Bilirubin, Urine Neg (Neg); Blood, Urine Neg (Neg); Glucose Qualitative, Urine 4+ (Neg); Ketones, Urine Neg (Neg); Leukocyte Esterase, Urine Neg (Neg); Nitrite, Urine Neg (Neg); Protein, Urine Neg (Neg); Urobilinogen, Urine NORM (Normal); pH, Urine 6.5 (5.0-8.0)
[2023-11-07 20:13] LABS: Appearance, Urine Clear (Clear); Color, Urine Pale Yellow (P-Yellow)
[2023-11-07 20:32] LABS: U Amphetamine Screen Not Detected; U Barbituate Screen Not Detected; U Benzodiazapine Screen Not Detected; U Buprenorphine Screen Not Detected; U Cannabinoids Screen Not Detected; U Cocaine Screen Not Detected; U Methadone Screen Not Detected; U Methamphetamine Screen Not Detected; U Opiates Screen Not Detected; U Oxycodone Screen Not Detected; U Phencyclidine Screen Not Detected
[2023-11-07] MEDS ORDERED: Insulin Human Lispro 100 Units/ML 3ML Syringe SC ONE (21:00)
[2023-11-07] MEDS ORDERED: HYDROmorphone HCl/Pf 1MG SYR IV ONE (22:05)
[2023-11-08 00:02] VITALS: BP 139/83
[2023-11-08] MEDS ORDERED: Insulin Human Lispro 100 Units/ML 3ML Syringe SC SCH (09:00)
== END 2023-11-08 00:02 | disposition home or self-care (01) ==
LOC: ER 18:40
PROVIDERS: Family Medicine
DX: R10.9 Unspecified abdominal pain (principal); E11.65 Type 2 diabetes mellitus with hyperglycemia; Z88.8 Allergy status to other drugs, medicaments and biological substances; Z88.5 Allergy status to narcotic agent; Z91.040 Latex allergy status; Z79.899 Other long term (current) drug therapy; Z79.4 Long term (current) use of insulin; I11.0 Hypertensive heart disease with heart failure; I50.9 Heart failure, unspecified; F17.210 Nicotine dependence, cigarettes, uncomplicated
CPT/HCPCS: 74176; 80053; 81003; 82010; 82947; 85025; 96361; 96374; 96375; 99285-25; J1170; J1815; J1885; J7030

== ENCOUNTER 2023-11-30 20:12 | Emergency (ER) | payer MEDICARE, OTHER ==
[~2023-11-30] VITALS: Ht 167.6 cm; Wt 90.7 kg
[~2023-11-30 20:12] MED LIST changes: +AZIT250 PO; +PRED20 PO
[2023-11-30 21:29] VITALS: BP 115/67
[2023-12-01 00:39] LABS: BASOPHILS ABSOLUTE AUTO 0.06 K/mm3 (0.00-0.23); BASOPHILS PERCENT AUTO 1 % (0-2); EOSINOPHILS ABSOLUTE AUTO 0.16 K/mm3 (0.00-0.68); EOSINOPHILS PERCENT AUTO 1 % (0-6); Hematocrit 40.4 % (33.0-51.0); Hemoglobin 13.3 g/dL (11.5-16.0); IMMATURE GRAN ABSOLUTE AUTO 0.22 K/mm3 (0.00-0.10); IMMATURE GRAN PERCENT AUTO 2 % (0-1); LYMPHOCYTES ABSOLUTE AUTO 2.51 K/mm3 (0.84-5.20); LYMPHOCYTES PERCENT AUTO 22 % (21-46); MONOCYTES ABSOLUTE AUTO 1.25 K/mm3 (0.16-1.47); MONOCYTES PERCENT AUTO 11 % (4-13); Mean Corpuscular HGB 28.1 pg (26.0-34.0); Mean Corpuscular HGB Conc 32.9 g/dL (31.5-36.5); Mean Corpuscular Volume 85 fL (80-100); Mean Platelet Volume 10.5 fL (9.1-12.4); NEUTROPHILS ABSOLUTE AUTO 7.36 K/mm3 (1.96-9.15); NEUTROPHILS PERCENT AUTO 64 % (41-73); Platelet Count 230 K/mm3 (150-400); RDW Coefficient Variation 13.4 % (11.7-14.2); Red Blood Cell Count 4.74 M/mm3 (3.80-5.20); White Blood Cell Count 11.56 K/mm3 (4.00-11.30)
[2023-12-01 00:58] LABS: Alanine Aminotransfer (ALT/SGP 20 U/L (12-78); Albumin, Blood 2.9 g/dL (3.4-5.0); Albumin/Globulin Ratio 0.8 (0.8-1.8); Alk Phos 108 U/L (50-136); Anion Gap 11 mmol/L (3-11); Aspartate Aminotrans (AST/SGOT 8 U/L (12-37); Bilirubin, Total 0.6 mg/dL (0.1-1.0); Blood Urea Nitrogen 17 mg/dL (8-24); Bun/Creatinine Ratio 22.7 (12.0-20.0); CO2, Blood 25 mmol/L (21-32); Calcium, Blood 8.8 mg/dL (8.5-10.1); Chloride, Blood 105 mmol/L (98-108); Creatinine, Blood 0.75 mg/dL (0.40-1.00); Ethanol (Alcohol), Blood, Med <3 mg/dL; Globulin, Blood 3.6 g/dL (2.2-4.0); Glomerular Filtration Rate 98 (60-); Glucose, Blood 336 mg/dL (70-99); Potassium, Blood 3.9 mmol/L (3.5-5.5); Sodium, Blood 137 mmol/L (136-145); Total Protein, Blood 6.5 g/dL (6.4-8.2)
== END 2023-12-01 00:43 | disposition home or self-care (01) ==
LOC: ER 20:12
PROVIDERS: Emergency Medicine
DX: F20.9 Schizophrenia, unspecified (principal); E86.0 Dehydration; E11.22 Type 2 diabetes mellitus with diabetic chronic kidney disease; I13.0 Hypertensive heart and chronic kidney disease with heart failure and stage 1 through stage 4 chronic kidney disease, or unspecified chronic kidney disease; I50.9 Heart failure, unspecified; N18.9 Chronic kidney disease, unspecified; F17.210 Nicotine dependence, cigarettes, uncomplicated; Z59.00 Homelessness unspecified; Z79.4 Long term (current) use of insulin; Z79.52 Long term (current) use of systemic steroids; Z79.899 Other long term (current) drug therapy; Z88.1 Allergy status to other antibiotic agents; Z91.040 Latex allergy status; Z88.5 Allergy status to narcotic agent; Z88.6 Allergy status to analgesic agent; Z88.8 Allergy status to other drugs, medicaments and biological substances
CPT/HCPCS: 80053; 85025; 93005; 93010; 99284-25

== ENCOUNTER 2023-12-03 10:40 | Inpatient (IN) | payer MEDICARE, OTHER ==
[2023-12-03] MEDS ORDERED: DiphenhydrAMINE HCl 50 MG/ML 1ML Vial IM PRN (12:35)
[2023-12-03] MEDS ORDERED: Acetaminophen 325 MG TABLET PO PRN (12:35)
[2023-12-03] MEDS ORDERED: Haloperidol 5 MG Tab PO PRN (12:35)
[2023-12-03] MEDS ORDERED: Haloperidol Lactate Inj. 5 MG/ML Injection IM PRN (12:35)
[2023-12-03] MEDS ORDERED: TraZODone HCl 50 MG Tab PO PRN (12:35)
[2023-12-03] MEDS ORDERED: OLANZapine 10 MG Vial IM PRN (12:35)
[2023-12-03] MEDS ORDERED: Melatonin 3 MG Tab PO PRN (12:40)
[2023-12-03] MEDS ORDERED: LORazepam 2 MG/ML 1ML Injection IM PRN (12:40)
[2023-12-03] MEDS ORDERED: LORazepam 2 MG Tab PO PRN (12:40)
[2023-12-03] MEDS ORDERED: LORazepam 1 MG Tab PO SCH (16:00)
[2023-12-03 16:15] VITALS: BP 166/79
[2023-12-03 19:57] VITALS: BP 162/88
[2023-12-03] MEDS ORDERED: Insulin Human Lispro 100 Units/ML 3ML Syringe SC SCH (21:00)
[2023-12-03] MEDS ORDERED: Insulin Regular 100 UNIT/ML 10ML Vial SC SCH (21:00)
--- NOTE | 2023-12-03 22:53 | NUR ---
Yeast noted under pannus on assessment. Contacted admitting MD who deferred to hospitalist service. Awaiting return call.
--- NOTE | 2023-12-04 00:14 | NUR ---
Patient wakes up very irritable around midnight. She initially refused her scheduled ativan however, with some redirection and active listening she agreed to take it. She remains seemingly solum with eppisodes of confusion nd slured speech. She requested to call her mother and a phone ws provided for her. She gave verbal consent for CN to speak to her mother Jahaira Dillon. Mother is able to give further H&P. Lindsey is currently homeless and has been living at the "[facility] She has been living in [place] for about a week. She is expected to get her SSD next week, and is very concerned she will not have any money. Jahaira (mother) tells me Amanda is schitophrenic, bipolar and has drug and alcohol addiction. She was working with [facility] on some of these issues. CN gave the phone back to Amanad and with in a few minutes Amanda started to yell at her mother for unkown reasons. CN came into the room to assist with redirecting and helm calm agitation. Amanda gave CN the phone and rolled over and put her blankets over her head. All parties are agreeable for Lindsey's mother (Jahaira) to be notified and included with care plan, questions, concerns or any needed H&P.
--- NOTE | 2023-12-04 00:14 | NUR ---
Patient had been very somnolent until 2300 when she woke sweating and shaking yelling she wanted to call her mother and wanted a cigarette. Call placed to mother after ativan given per schedule. Patient was jerking away from staff and saying Fuck you to this RN and refusing the drug. astronomy department chair convinced the patient it was a medication to stave off cravings, then she agreed to take it. [place] and was very concerned about where her social security had gone. Mother thought it was being "[facility] the [facility]". Mother also stated that patient had gotten in touch with [facility] last week to attempt to get services. will continue q 15 minute monitoring for safety.
--- NOTE | 2023-12-04 04:52 | NUR ---
Lindsey slept well after her 0 Ativan. No further episodes of agitation or anxiety. She is very concerned about getting ahold of [facility] on Tuesday, then picking up her check at [facility]. She did speak with her mother around 2229 when she first began getting agitated. She could definately benefit from a nicotine patch. No evidence of any auditory hallucinations overnight.
[2023-12-04 07:34] LABS: Alanine Aminotransfer (ALT/SGP 19 U/L (12-78); Albumin, Blood 2.8 g/dL (3.4-5.0); Albumin/Globulin Ratio 0.8 (0.8-1.8); Alk Phos 94 U/L (50-136); Anion Gap 14 mmol/L (3-11); Aspartate Aminotrans (AST/SGOT 9 U/L (12-37); Bilirubin, Total 0.4 mg/dL (0.1-1.0); Blood Urea Nitrogen 19 mg/dL (8-24); Bun/Creatinine Ratio 23.5 (12.0-20.0); CHOL/HDL RATIO 5.1; CO2, Blood 22 mmol/L (21-32); Calcium, Blood 8.6 mg/dL (8.5-10.1); Chloride, Blood 104 mmol/L (98-108); Cholesterol 167 mg/dL (50-200); Creatinine, Blood 0.81 mg/dL (0.40-1.00); Globulin, Blood 3.5 g/dL (2.2-4.0); Glomerular Filtration Rate 89 (60-); Glucose, Blood 533 mg/dL (70-99); HDL Cholesterol 33 mg/dL (>39); LDL/HDL RATIO 3.3; Low Density Lipoprotein Chol 107 mg/dL (0-110); Potassium, Blood 4.4 mmol/L (3.5-5.5); Sodium, Blood 136 mmol/L (136-145); Total Protein, Blood 6.3 g/dL (6.4-8.2); Triglycerides 133 mg/dL (30-160); Very Low Density Lipoprot Chol 26 mg/dL (6-32)
--- NOTE | 2023-12-04 07:52 | NUR ---
Provider consult called Spoke w/ Dr Herr regarding pt consult and needs for diabetic management. Informed provider of pt blood sugar by lab of 533, and unit CBG 464. Dr Herr reports he will enter orders from remote and will be over to see patient later after he completes his rounding.
[2023-12-04] MEDS ORDERED: Insulin NPH 100 Unit / ML 10ML Vial SC STA (07:58)
[2023-12-04 08:13] VITALS: BP 144/70
[2023-12-04] MEDS ORDERED: Miconazole Nitrate 2% 85 GM PWD TOP SCH (09:00)
[2023-12-04] MEDS ORDERED: Insulin Human Lispro 100 Units/ML 3ML Syringe SC SCH (11:30)
--- NOTE | 2023-12-04 13:04 | NUR ---
AROUND [phone] PT WAS GETTING AGGITATED YELLING ABOUT MOM HAVING HER MEDICAL INFO WHEN SUKUMARER IN THE DAY SHE HAD CALLED HER MOM AND TOLD HER ALL HER MEDICAL HISTORY
[2023-12-04] MEDS ORDERED: LORazepam 1 MG Tab PO PRN (13:30)
[2023-12-04] MEDS ORDERED: Tiotropium Bromide 2.5 MCG/ACT MIST INHAL (10 ACT/4 GM) INH SCH (14:15)
[2023-12-04] MEDS ORDERED: Albuterol HFA200 ACT/6.7 GM INH INH PRN (14:20)
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
[2023-12-04] MEDS ORDERED: Lisinopril 10 MG Tab PO SCH (15:00)
--- NOTE | 2023-12-04 15:10 | NUR ---
DR. SANTAMARIA STATES THAT PT IS BIPOLAR NOT SCHIZOPHRENIC. STATES THAT SHE IS MANIC AT THIS TIME. NEW MEDICATIONS ORDERED SEE EMAR. HOSPITALIST CONSULTED PATIENT. NEW INSULIN AND BP MEDICATION ORDERED SEE EMAR. PRN HALIDOL AND ATIVAN GIVEN FOR MASS SCORE OF 18. PT REFUSED NICOTINE PATCH AND ANTIFUNGAL POWDER.
--- NOTE | 2023-12-04 17:22 | NUR ---
PT REPORTS THAT SHE HAS NOT SLEPT IN "3-4 DAYS" AROUND 1430 SHE REQUEST A SANDWICH AND "100MG OF SEROQUEL" EDUCATED PT ON MEDICATIONS SHE HAS AVAILABLE. SHE IS UPSET AND KEEPS REPEATING THAT SHE WANTS THE SEROQUEL. PT ALSO UPSET THAT THE HOSPITALIST WOULD ONLY PRESCIBE TYLENOL FOR PAIN. AND STATES IT "WON'T DO ANYTHING" SHE DID AGREE TO TRY THE TYLENOL PT AGREED TO TRY TO LAY DOWN AND LISTEN TO MUSIC TO RELAX. SHE DID EVENTUALLY FALL ASLEEP.
[2023-12-04 20:31] VITALS: BP 146/77
[2023-12-04] MEDS ORDERED: Divalproex Sodium 500 MG TABLET.DR PO SCH (21:00)
[2023-12-04] MEDS ORDERED: LORazepam 1 MG Tab PO SCH (21:00)
[2023-12-04] MEDS ORDERED: Insulin Glargine-Yfgn 100 Unit/mL 3 ML SYR SC SCH (21:00)
[2023-12-04] MEDS ORDERED: QUEtiapine Fumarate 200 MG Tab PO SCH (21:00)
--- NOTE | 2023-12-05 02:44 | NUR ---
patient awake at 0215 after period of incontinence during sleep. after getting redressed, patient came out to desk to warn staff about nuclear bomb she stated under the building, then [facility] (in area where she lives). Stated she refused to go back to bed until she had warned us.
--- NOTE | 2023-12-05 04:09 | NUR ---
Patient slept well most of the night after new HS medication combination. She did wake around 0215 worried about a nuclear bomb that she thought was buried either underneath the [facility], [place] or in [place]. She was very adamant that the staff needed to be warned and also that [facility]. Unable to relax or go back to sleep, she was given Trazodone and melatonin as her one time prn ativan and haldol had already been given yesterday afternoon. no further episodes overnight
[2023-12-05 07:34] VITALS: BP 121/71
--- NOTE | 2023-12-05 08:24 | NUR ---
ASSUMED PT CARE @ 0715. PT RESTING IN BED WITH EYES CLOSED. AM BG 210. PT INTITIALLY REFUSED INSULIN. WAREHOUSE SHIPPING SUPERVISOR LADONNA NOTIFIED. WITH LIGHT COACHING SHE DID AGREE TO INSULIN. SHE DENIES ANY NEEDS AT THIS TIME.
[2023-12-05] MEDS ORDERED: Nicotine 21 MG PATCH TOP SCH (09:00)
[2023-12-05] MEDS ORDERED: LORazepam 1 MG Tab PO SCH (11:00)
--- NOTE | 2023-12-05 16:03 | NUR ---
Patient left a visit with JEANETTE Toney then asked me if I could get her a snack, I said yes follow me to the dinning room, and she did. Once she sat at the dinning room table, she stated she did not like Feng at all, PT stated "She is a leopard who wont change her spots, she will turn on everybody and stab them in the back." PT stated she didn't like "her kind" and that "men and women of her skin color ruined my life". PT said "black people dont care about me and i hate them all." She told me to "watch my back becayse people like that will slit your throat ". I told PT i was sorry she felt that way, our SW deeply cares for her patients, PT stated "I dont give a fuck what you say". I asked if she would like to go sit in the group room with the other MHA and PTs and she said she wanted to make some phone calls. I immediately went to my charge nurse Kat and told her what happened, I then told the PTs nurse Nicole, and our SW Feng.
--- NOTE | 2023-12-05 17:41 | NUR ---
HUGHKapil Ian served dinner trays at [phone], PT looked at tray and refused to eat. MARIA ELENA Ian asked what she didnt like on the tray, PT stated "All of it", He asked what she would like to eat and she said 2 1/2 [place] Sandwiches, 1 Pudding cup, 1 pack of cookies. Kapil gave PT the requested food items. RN notified.
--- NOTE | 2023-12-05 18:33 | NUR ---
PT SHOWING MILD IMPROVEMENT TODAY. SHE WAS ABLE TO SLEEP. PT MEDICATION CHANGED TODAY PLEASE SEE EMAR. PT AGREEABLE TO CHANGE BUT UPSET THAT SHE COULD NOT TAKE SEROQUEL THIS AFTERNOON. PT DID REFUSE BG TESTING TWICE, BUT WAS AGREEABLE AFTER COACHING. PT ELEVATES EASILY BUT IS EASILY DEESCALATED. PT UP TO MEALS BUT DECLINES GROUP. PT DID HAVE SOME RACIAL SLURS TOWARDS STAFF BUT WAS AGREEABLE WHEN TOLD IT WAS INAPPROPRIATE AND AGREED TO REFRAIN IN THE FUTURE.
[2023-12-05 20:47] VITALS: BP 226/207
[2023-12-05] MEDS ORDERED: Insulin Glargine-Yfgn 100 Unit/mL 3 ML SYR SC SCH (21:00)
[2023-12-05] MEDS ORDERED: OLANZapine ODT 10 MG Tab PO SCH (21:00)
[2023-12-06] MEDS ORDERED: Gabapentin 300 MG Cap PO ONE (06:00)
--- NOTE | 2023-12-06 06:59 | NUR ---
Pt refused pain medication.
[2023-12-06 07:39] VITALS: BP 153/86
--- NOTE | 2023-12-06 08:04 | NUR ---
ASSUMED PT CARE @0700. PT IN BED REPORTING THAT "SHE WANTS TO GO HOME" SHE ALLOWED ME TO TEST BLOOD SUGAR BUT REFUSED INSULIN. SHE STATED THAT "SHE DON'T CARE" ABOUT GOING HOME AND "I DON'T HAVE ANYWHERE TO GO" AFTER COACHING SHE DID EVENTUALLY AGREE. PT ASKING TO TALK TO "MINO" WHO IS A CARBON PASTE MIXER OPERATOR IN [place]. DISCUSSED WITH PT THAT WE WOULD DISCUSS SUPPORT OPTIONS WITH [employer].
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
[2023-12-06] MEDS ORDERED: Polyethylene Glycol 3350 17 gm PO PRN (15:30)
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
[2023-12-06 20:13] VITALS: BP 129/78
--- NOTE | 2023-12-06 20:33 | NUR ---
Pt calm, cooperative, medication compliant, seen on unit social with staff and peers eating snack, medications administered as ordered. Pt denies SI, HI, V/Hallucinations, endorces A/Hallucinations. Pt endorces delusional thinking bomb is under the floor. Pt displays patients with RN assessments and process of medication passing.
[2023-12-06] MEDS ORDERED: Docusate Sodium 100 MG Cap PO SCH (21:00)
--- NOTE | 2023-12-06 21:13 | NUR ---
Pt calm, cooperative, using improved patience with processes, medications compliance. Pt requires more education of medications. Pt begining to be have more interest in why she needs each medication. Pt requests assessment and imaging of left foot, "My foot feels like its broken." Pt states "I need a nicotine patch." RN states, "the nicotine patch had side effect of nightmares not to be used for night time. The Doctor can order this in the morning." Pt has improved insite and has expressed remorse for her disagreeable attitude the previous night.
--- NOTE | 2023-12-06 21:49 | NUR ---
Pt denies SI, HI, A/V Hallucinations at this time.
--- NOTE | 2023-12-07 02:29 | NUR ---
Patient has audibly expressed pain from 10:30pm to 11:15pm from the left foot. The patient has expressed the pain on a scale from 1-10 is a 10.
--- NOTE | 2023-12-07 04:40 | NUR ---
PT Blood Glucose CBG was 186 at 2109 this shift. Pt calm, cooperative, medication compliant. Pt better controlled on diabetic diet and limited snacks. Pt used sensory room. Pt was in pain 2229 through 2329 after tylenol and scheduled medications were administered as ordered 2109. Pt rested 3-4 hours RN administered tylenol. Pt resting in bed three consecutive rise and fall of chest observed. No issues this shift.
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
--- NOTE | 2023-12-07 05:00 | NUR ---
Pt seen on unit social, eating snack with other patients, interacting with staff. Medication compliant. Pt cooperative, calm, no issues.
--- NOTE | 2023-12-07 06:01 | NUR ---
Pt more coherant this morning. 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 Pt states she wants to go then return here after. Pt feels that she is better making progress with taking her medication and her blood sugar under control since being here. Pt calm, cooperative, coherant this morning. NO Issues.
--- NOTE | 2023-12-07 06:25 | NUR ---
Patient advised she has a daughter named Vandana who is 11 years old and lives with her cousing. Patient showered at 6:20 with new clothes.
[2023-12-07 07:23] VITALS: BP 133/70
[2023-12-07 07:26] VITALS: BP 155/79
--- NOTE | 2023-12-07 09:10 | NUR ---
Came onto shift today at 0645, PT was up and walking around in a great mood, but stated she does not like her nurse today and would like a different one. I asked PT to give her nurse a chance because she is very kind and a good nurse, PT stated she would. PT then found me at 0900 and said she would take her meds and do whatever else her nurse needed her to, if she could leave to go tsai her SSI check and come back, I said she would need to talk to the doctor about those things. I asked her to be kind and respectful to her nurse after refusing to take her meds, she said she "i will not speak to my nurse, but will take the meds and do the blood sugar test if you do all the communication for me". I told PT that I would do some communication, but that she needed to work together with her nurse, she said she would try.
--- NOTE | 2023-12-07 09:16 | NUR ---
ON MORNING MED PASS PT REFUSED SOME OF HER MEDS AND TOOK OTHERS. SHE IS UPSET THAT HER BLOOD SUGAR TOOK SO MANY TRIES THIS AM AND STILL UNABLE TO GET IT THE GLUCOMETER IS NOT WORKING. 6 ATTEMPTS TRIED. ADRIENNE CALLED LAB TO REPORT PROBLEM.
[2023-12-07 11:52] LABS: Valproic Acid 38.6 ug/mL (50.0-100.0)
[2023-12-07 12:10] LABS: Alanine Aminotransfer (ALT/SGP 22 U/L (12-78); Albumin/Globulin Ratio 0.8 (0.8-1.8); Alk Phos 95 U/L (50-136); Aspartate Aminotrans (AST/SGOT 4 U/L (12-37); Bilirubin, Direct <0.1 mg/dL (0.0-0.3); Bilirubin, Indirect Unable to Calculate mg/dL (0.1-0.7); Bilirubin, Total 0.2 mg/dL (0.1-1.0); Globulin, Blood 3.7 g/dL (2.2-4.0); Total Protein, Blood 6.7 g/dL (6.4-8.2)
--- NOTE | 2023-12-07 12:38 | NUR ---
C/O LEG PAIN 10/10 GIVEN TYLENOL 650 MG PO FOR PAIN. OFFERED BLANKET TO COVER LEGS AND IF WANTED TO LIFT THEM. DECLINED BOTH OFFERS. WILL CONTINUE TO MONITOR. .
--- NOTE | 2023-12-07 13:29 | NUR ---
PT RESTING ON BED WITH EYES CLOSED. APPEARS TO BE COMFORTABLE. WILL CONTINUE TO MONITOR.
--- NOTE | 2023-12-07 14:46 | NUR ---
On 12/06/2023 at 12:46pm SW contacted [facility], in order to review if pt can use their services for halfway once discharge approaches. Per Adri, pt is not allowed to use [facility]. Adri did not advise reason.
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
[2023-12-07] MEDS ORDERED: Insulin Regular 100 UNIT/ML 10ML Vial SC SCH (16:30)
--- NOTE | 2023-12-07 18:03 | NUR ---
PT ANKURSTDonald FOR MHA TO BRAID HER HAIR:
[2023-12-07 20:44] VITALS: BP 142/82
[2023-12-07] MEDS ORDERED: OXcarbazepine 300 MG Tab PO SCH (21:00)
--- NOTE | 2023-12-07 22:07 | NUR ---
patient very tearful tonight. Asking to leave, stating she wants to go to see her daughter (who she states was taken from her 4 years ago) who lives in [place]. Asks if is going to discharge her tomorrow. Trazodone, melatonin and tylenol given for comfort and rest. Explained that this RN would Make toe Aware of her request in the morning. will continue close monitoring
--- NOTE | 2023-12-07 22:23 | NUR ---
Patient asking to have a list of medications and to be discharged now from unit. She also states she has Tourettes and needs a cane and medication for that as well. call placed to Dr. Bach to inform
--- NOTE | 2023-12-08 04:47 | NUR ---
Patient received 2mg IM Ativan around 2330. She was quite upset about daughter, and asking about how the U was going to be able to assist her in [place] area. This RN told her the Fluorescent Lighting Model Maker was working on her case, and would be in tomorrow. Small snack was given and 2mg IM ativan to ease her agitation. Patient slept for two hours but [facility] assisted her to redress. She again woke asking about [place] and assistance for her in the area.
[2023-12-08 08:12] LABS: Valproic Acid 43.6 ug/mL (50.0-100.0)
[2023-12-08 08:40] VITALS: BP 155/93
--- NOTE | 2023-12-08 08:41 | NUR ---
JEANETTE contacted [employer] at 8:23am. Per [facility] retail representative pt will have a psychiatric appointment at 10:30am on 12/13/[address] Maldonado. Per [employer] retail representative uSzi, pt will have an appointment with primary care January 24 at 10:30am. Suzi advised a sooner appointment with PCP is not available due to the next soonest appointment beginning in February.
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
[2023-12-08 20:16] VITALS: BP 142/96
[2023-12-08] MEDS ORDERED: Divalproex Sodium 250 MG TABLET.DR PO SCH (21:00)
--- NOTE | 2023-12-09 04:31 | NUR ---
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 Additionally, Lindsey requested again about the possibility of her getting services in the [place] area where her daughter lived. For this she was referred to social media executive in the morning. Tearful and frustrated prior to going to bed, patient was given 5mg IM Haldol to assist her with calming and sleep. up several times throughout the night asking for snacks and coffee.
--- NOTE | 2023-12-09 05:30 | NUR ---
The patient was up 5 times tonight for short intervals. The patient had 2 meat sanwiches with string cheese and no bread, one diet yogurt, three cups of decaf coffee and one iced tea. I assisted the patient with writing an apology letter to detective tan.
--- NOTE | 2023-12-09 06:13 | NUR ---
The patient showered and changed clothes at 6:15am.
--- NOTE | 2023-12-09 07:55 | NUR ---
ISAIAS Jarvis/ [facility], HANDKERCHIEF FOLDER [phone] REQUESTING CALL BACK FROM MANIPULATIVE THERAPY SPECIALIST
--- NOTE | 2023-12-09 08:44 | NUR ---
SW attempted to return call of Haydee. SW will attempt to call Haydee at another time.
[2023-12-09] MEDS ORDERED: Insulin Glargine-Yfgn 100 Unit/mL 3 ML SYR SC SCH (09:00)
--- NOTE | 2023-12-09 10:50 | NUR ---
PT WAS UP EARLY THIS AM. QUITER THIS AM THAN YEATERDY WHEN SHE WAS LAUGHING AND SINGING. STATES SHE WANTED TO GO HOME TODAY. LET HER KNOW THAT WILL ASK ON HIS ROUNDS THIS MORNING. SR HERE NOW AND TOLD PT THAT HE WAS GOING TO DISCHARGE HER TODAY. NOW IS CRYING WORRYING WHERE SHE WILL GO AFTER DISCHARGE. JEANETTE WORKING ON THIS ISSUE RIGHT NOW. MHA SITTING WITH HER TO LET HER VENT. WILL CONTINUE TO MONITOR.
[2023-12-09] MEDS ORDERED: ALBU90OI INH (12:02)
[2023-12-09] MEDS ORDERED: DIVA500ER PO (12:04)
[2023-12-09] MEDS ORDERED: Prinivil10 MG PO (12:06)
[2023-12-09] MEDS ORDERED: MELA3 PO (12:06)
[2023-12-09] MEDS ORDERED: MICONAZOLE NIT130 GM (12:07)
[2023-12-09] MEDS ORDERED: NICO21TP TOP (12:07)
[2023-12-09] MEDS ORDERED: OLAN10 PO (12:08)
[2023-12-09] MEDS ORDERED: Oxcarbazepine300 MG PO (12:09)
[2023-12-09] MEDS ORDERED: MIRALAX17 GM PO (12:09)
--- NOTE | 2023-12-09 12:24 | NUR ---
JEANETTE contacted multiple facilities in order to provide pt with assistance for care home support (i.e. [facility], provider [facility] of [facility], [facility], [facility], [facility], [facility] and [facility]). JEANETTE spoke with worker Sammi of [facility] who advised that currently positions are filled regarding care home, however, JEANETTE requested Sammi to fax the facility's assessment packet. SW provided pt with [facility] assessment packet. JEANETTE contacted [facility] in order to review if extra support could be provided for advocacy support for pt to be able to reside in [facility].
[2023-12-09] MEDS ORDERED: HUMULIN R100 UNIT/2 (13:28)
--- NOTE | 2023-12-09 15:32 | NUR ---
PT DISCHARGED TO HOME. LEFT IN TAXI AT 1530. PT GIVEN DISCHARGE INSTRUCTIONS, PRESCRIPTIONS, AND EDUCATION. PT WAS GIVEN NEW CLOTHES TO WEAR HOME. PT INSRUCTED TO GO TO [facility] TO MAKING MACHINE OPERATOR PRESCRIPTIONS WAITING FOR HER. MOOD WAS HAPPY AND LAUGHING.
--- NOTE | 2023-12-09 16:21 | NUR ---
On 12/09/2023 at approximately 1430 SW contacted pt insurance via [employer] at [phone] in order to support pt in having transportation assist to [facility] to retrieve medication and then [place], per pt request.
--- NOTE | 2023-12-15 12:00 | NUR ---
SW attempted to contact pt for follow up after discharge via number on file (i.e. [phone]). Upon call, an automatic message stated "The caller is not accepting calls at this time".
== END 2023-12-09 15:30 | disposition home or self-care (01) | DRG 885 ==
LOC: BHU 10:40
PROVIDERS: ADMIT Student in an Organized Health Care Education/Training Program
DX: F20.0 Paranoid schizophrenia (principal); I50.32 Chronic diastolic (congestive) heart failure; I13.0 Hypertensive heart and chronic kidney disease with heart failure and stage 1 through stage 4 chronic kidney disease, or unspecified chronic kidney disease; E11.65 Type 2 diabetes mellitus with hyperglycemia; K59.00 Constipation, unspecified; E11.22 Type 2 diabetes mellitus with diabetic chronic kidney disease; N18.9 Chronic kidney disease, unspecified; F31.9 Bipolar disorder, unspecified; Z90.5 Acquired absence of kidney; Z79.4 Long term (current) use of insulin; Z87.891 Personal history of nicotine dependence; Z88.1 Allergy status to other antibiotic agents; Z88.8 Allergy status to other drugs, medicaments and biological substances; Z88.5 Allergy status to narcotic agent; Z91.040 Latex allergy status; Z79.52 Long term (current) use of systemic steroids; Z91.148 Patient's other noncompliance with medication regimen for other reason
CPT/HCPCS: 0241U; 36415; 80053; 80061; 80076; 80164; 81001; 81025; 82140; 82947; 83036; 85025; A9270; G0480; J1630; J1815; J2060